=== PATIENT | female | born 1930 | race African-American/Black ===

== ENCOUNTER 2016-07-11 03:18 | Inpatient (IN) | payer MEDICARE, BC ==
[~2016-07-11] VITALS: Ht 177.8 cm; Wt 99.8 kg
[2016-07-11 04:04] LABS: BASO # 0.2 x10^3/uL (0.0-0.2); BASO % 0 % (0-3); EOS % 0 % (0-3); HEMATOCRIT 34.8 % (36.0-47.0); LYMPH # 34.1 x10^3/uL (1.0-4.8); LYMPH % 83 % (24-48); MEAN CORPUSCULAR HEMOGLOBIN 30 pg (25-35); MEAN CORPUSCULAR HGB CONC 32 g/dL (31-37); MEAN CORPUSCULAR VOLUME 94 fL (79-100); MONO % 3 % (0-9); NEUT % 14 % (31-73); PLATELET COUNT 194 x10^3/uL (140-400); RED BLOOD COUNT 3.71 x10^6/uL (3.50-5.40); RED CELL DISTRIBUTION WIDTH 13.5 % (11.5-14.5)
[2016-07-11 04:06] LABS: WHITE BLOOD COUNT 41.1 x10^3/uL (4.0-11.0)
[2016-07-11 04:16] LABS: BILIRUBIN,URINE NEGATIVE (NEG); GLUCOSE,URINE NEGATIVE (NEG); NITRITE,URINE NEGATIVE (NEG); PH,URINE 7.5; PROTEIN,URINE NEGATIVE (NEG-TRACE)
[2016-07-11 04:19] LABS: ALBUMIN 3.7 g/dL (3.4-5.0); ALBUMIN/GLOBULIN RATIO 0.9 (1.0-1.7); CALCIUM 9.8 mg/dL (8.5-10.1); CREATININE 0.8 mg/dL (0.6-1.0); GFR 67.8; TOTAL BILIRUBIN 0.9 mg/dL (0.2-1.0); TOTAL PROTEIN 7.9 g/dL (6.4-8.2)
[2016-07-11 04:21] LABS: POTASSIUM 2.9 mmol/L (3.5-5.1)
[2016-07-11 04:26] LABS: BACTERIA,URINE 0 /HPF (0-FEW); SQUAMOUS EPITHELIAL CELL,UR OCC /LPF; WBC,URINE OCC /HPF (0-4)
[2016-07-11] MEDS ORDERED: CONTRAST GIVEN MC PRN (04:45)
[2016-07-11 04:59] LABS: PLT ESTIMATE ADEQUATE (ADEQUATE); SMUDGE CELLS PRESENT
[2016-07-11] MEDS ORDERED: IOHEXOL 300 MG/ML 75 ML VIAL IV ONE (05:00)
--- NOTE | 2016-07-11 05:44 | RAD ---
PROCEDURE CT abdomen and pelvis with contrast. HISTORY Left lower quadrant and back pain. TECHNIQUE Helical CT imaging of the abdomen and pelvis is performed after 75 cc Omnipaque 300 IV contrast. Oral contrast is not given. PQRS: One or more the following individualized dose reduction techniques were utilized for the study: 1. Automated exposure control. 2. Adjustment of the mA and/or kV according to patient size. 3. Use of iterative reconstruction technique. COMPARISON None. FINDINGS Minimal dependent atelectasis in the bilateral lower lobes. The cardiac size is normal. Gallbladder not seen, probably surgically absent. The liver, spleen, pancreas, and adrenal glands are normal. The abdominal aorta is normal caliber. Kidneys enhance symmetrically. There is mild bilateral pelviectasis. Appearance may be due to moderately distended bladder. No urinary bladder wall thickening. Stomach unremarkable. No dilated small bowel. There is distal colon resection. There is left lower quadrant ostomy. The appendix is normal. There is distention of the ascending colon with stool. There is a right periumbilical hernia that contains a loop of colon. The colon distal to the hernia is not dilated. There is mild retroperitoneal adenopathy. For example there is a 1.9 x 1.4 cm lymph node at the level of the left kidney. There is a mildly enlarged pericecal lymph node, image 39. Mildly enlarged bilateral inguinal lymph nodes and bilateral iliac chain lymph nodes. Uterus surgically absent. No pelvic free fluid. There is old compression fracture at the superior endplate of L2. The IMPRESSION 1. There is a small ventral hernia that contains a short segment of mid transverse colon. The colon proximal to this is dilated and fluid-filled. There may be low-grade obstruction. 2. Bladder is moderately distended. There is bilateral pelviectasis that may be secondary to the distention. 3. There is mild retroperitoneal, iliac chain, and inguinal adenopathy. Considerations include metastatic disease or lymphoproliferative disorder. Electronically signed by: Zurdo Coles MD (Jul 11, 2016 05:42:29)
--- NOTE | 2016-07-11 05:52 | ED.ADGEN ---
Past Medical History Past Medical History: Cancer, Hypertension Additional Past Medical Histor: colon ca, chemo and radiadiaiton. Past Surgical History: Other Additional Past Surgical Histo: hernia, colon ca Drug Use: None Adult General Chief Complaint Chief Complaint: OSTOMY PROBLEM HPI HPI Patient is a 85 year old woman, history of hypertension, colon cancer status post partial bowel resection with ostomy in place, who presents emergency department with complaint that she has been having decreased output from her ostomy, also occasionally pain, and generalized weakness. Patient is not a clear historian. Patient is also complaining of low back pain which she states is in barrios worse with a past several days. Patient lives alone, with assistance from her family. She denies any nausea or vomiting, any urinary complaints, any weakness emesis or tingling. Patient's son-in-law is present in the ED, patient' s daughter spoke with nurse [place] on telephone, and informed her that the patient to become increasingly confused with past several months. Patient is denying any injuries, any similar symptoms previously. Review of Systems Review of Systems Constitutional: Denies fever or chills. [] Eyes: Denies change in visual acuity. [] HENT: Denies nasal congestion or sore throat. [] Respiratory: Denies cough or shortness of breath. [] Cardiovascular: Denies chest pain or edema. [] GI: Left lower quadrant abdominal pain, with decreased ostomy output over the past day. No nausea, vomiting, bloody stools or diarrhea. : Denies dysuria. [] Musculoskeletal: Denies back pain or joint pain. [] Integument: Denies rash. [] Neurologic: Denies headache, focal weakness or sensory changes. [] Endocrine: Denies polyuria or polydipsia. [] Lymphatic: Denies swollen glands. [] Psychiatric: Denies depression or anxiety. [] Current Medications Current Medications Current Medications Medications (Trade) Dose Ordered Sig/Wilmer Start Time Stop Time Status Last Admin Dose Admin Info 1 each 1 each PRN DAILY PRN 07/11/16 04:45 07/13/16 04:44 Iohexol (Omnipaque 300 Mg/ml) 75 ml 1X ONCE 07/11/16 05:00 07/11/16 05:01 DC 07/11/16 05:18 75 ML Potassium Chloride/Sodium Chloride (KCl 40 Meq-NS 1,000 ml Iv Soln) 1,000 ml @ 75 mls/hr 1X ONCE 07/11/16 06:00 07/11/16 19:19 DC 07/11/16 06:18 75 MLS/HR Potassium Chloride (KCl Oral Soln) 40 meq 1X ONCE 07/11/16 06:00 07/11/16 06:01 DC 07/11/16 06:17 40 MEQ Allergies Allergies Allergies Coded Allergies Type Severity Reaction Last Updated Verified Penicillins Allergy Intermediate 07/11/16 Yes Sulfa (Sulfonamide Antibiotics) Allergy Intermediate 07/11/16 Yes Physical Exam Physical Exam Constitutional: Well developed, well nourished, no acute distress, non-toxic appearance. [] HENT: Normocephalic, atraumatic, bilateral external ears normal, oropharynx moist, no oral exudates, nose normal. [] Eyes: PERRLA, EOMI, conjunctiva normal, no discharge. [] Neck: Normal range of motion, no tenderness, supple, no stridor. [] Cardiovascular:Heart rate regular rhythm, no murmur [] Lungs & Thorax: Bilateral breath sounds clear to auscultation [] Abdomen: Bowel sounds normal, soft, no tenderness, no masses, no pulsatile masses. [] Skin: Warm, dry, no erythema, no rash. [] Back: No tenderness, no CVA tenderness. [] Extremities: No tenderness, no cyanosis, no clubbing, ROM intact, no edema. [] Neurologic: Alert and oriented X 3, normal motor function, normal sensory function, no focal deficits noted. [] Psychologic: Affect normal, judgement normal, mood normal. [] Current Patient Data Vital Signs Vital Signs Date Time Temp Pulse Resp B/P Pulse Ox O2 Delivery O2 Flow Rate FiO2 07/11/16 07:00 62 160/71 95 Room Air 07/11/16 03:35 98.0 22 98.0 Lab Values Laboratory Tests Test 07/11/16 03:44 07/11/16 04:10 07/11/16 04:22 White Blood Count 41.1x10^3/uL (4.0-11.0) *H Red Blood Count 3.71x10^6/uL (3.50-5.40) Hemoglobin 11.0g/dL (12.0-15.5) L Hematocrit 34.8% (36.0-47.0) L Mean Corpuscular Volume 94fL (79-100) Mean Corpuscular Hemoglobin 30pg (25-35) Mean Corpuscular Hemoglobin Concent 32g/dL (31-37) Red Cell Distribution Width 13.5% (11.5-14.5) Platelet Count 194x10^3/uL (140-400) Neutrophils (%) (Auto) 14% (31-73) L Lymphocytes (%) (Auto) 83% (24-48) H Monocytes (%) (Auto) 3% (0-9) Eosinophils (%) (Auto) 0% (0-3) Basophils (%) (Auto) 0% (0-3) Neutrophils # (Auto) 5.7x10^3uL (1.8-7.7) Lymphocytes # (Auto) 34.1x10^3/uL (1.0-4.8) H Monocytes # (Auto) 1.1x10^3/uL (0.0-1.1) Eosinophils # (Auto) 0.1x10^3/uL (0.0-0.7) Basophils # (Auto) 0.2x10^3/uL (0.0-0.2) Segmented Neutrophils % 17% (35-66) L Lymphocytes % 79% (24-48) H Monocytes % 4% (0-10) Smudge Cells Present Platelet Estimate Adequate (ADEQUATE) Giant Platelets Occ Sodium Level 148mmol/L (136-145) H Potassium Level 2.9mmol/L (3.5-5.1) *L Chloride Level 105mmol/L (98-107) Carbon Dioxide Level 34mmol/L (21-32) H Anion Gap 9 (6-14) Blood Urea Nitrogen 13mg/dL (7-20) Creatinine 0.8mg/dL (0.6-1.0) Estimated GFR (Cockcroft-Gault) 67.8 BUN/Creatinine Ratio 16 (6-20) Glucose Level 104mg/dL (70-99) H Calcium Level 9.8mg/dL (8.5-10.1) Total Bilirubin 0.9mg/dL (0.2-1.0) Aspartate Amino Transferase (AST) 15U/L (15-37) Alanine Aminotransferase (ALT) 17U/L (14-59) Alkaline Phosphatase 114U/L (46-116) Total Protein 7.9g/dL (6.4-8.2) Albumin 3.7g/dL (3.4-5.0) Albumin/Globulin Ratio 0.9 (1.0-1.7) L Lipase 89U/L (73-393) Urine Collection Type U cath Urine Color Yellow Urine Clarity Clear Urine pH 7.5 Urine Specific [place] <=1.005 Urine Protein Negativemg/dL (NEG-TRACE) Urine Glucose (UA) Negativemg/dL (NEG) Urine Ketones (Stick) Negativemg/dL (NEG) Urine Blood Trace (NEG) Urine Nitrite Negative (NEG) Urine Bilirubin Negative (NEG) Urine Urobilinogen Dipstick 1.0mg/dL (0.2 mg/dL) Urine Leukocyte Esterase Negative (NEG) Urine RBC 1-2/HPF (0-2) Urine WBC Occ/HPF (0-4) Urine Squamous Epithelial Cells Occ/LPF Urine Amorphous Sediment Present/HPF Urine Bacteria 0/HPF (0-FEW) Urine Mucus Slight/LPF Lactic Acid Level 1.0mmol/L (0.4-2.0) Laboratory Tests 07/11/16 03:44 Laboratory Tests 07/11/16 03:44 EKG EKG EC: Sinus rhythm, heart rate 67 bpm, upright axis, QTC of 4:15, NV 158, QRS of 78, mild baseline artifact noted, no ST elevations or depressions, does not meet STEMI criteria. As interpreted by me. Radiology/Procedures Radiology/Procedures [] [facility] [address] [place] [address] IMAGING REPORT Signed PATIENT: BENJAMÍN GROSSMAN ACCOUNT: [id number] : 1930 LOCATION: ER AGE: 85 SEX: F EXAM STATUS: REG ER ORD. PHYSICIAN: ELIZABET MANDUJANO DO REASON: AMS PROCEDURE: HEAD WO CONTRAST PROCEDURE CT head without contrast. HISTORY Increasing altered mental status some of the last couple of weeks. History of colon cancer. TECHNIQUE Helical CT imaging of the brain is performed without IV contrast. PQRS: One or more the following individualized dose reduction techniques were utilized for the study: 1. Automated exposure control. 2. Adjustment of the mA and/or kV according to patient size. 3. Use of iterative reconstruction technique. COMPARISON None. FINDINGS There is no midline shift or mass effect. No extra-axial fluid collection or intraparenchymal hemorrhage. Barrios-white matter differentiation is preserved. Ventricles and sulci are prominent compatible with age-related cerebral atrophy. Mucosal thickening in the bilateral maxillary sinuses. Maxillary sinuses incompletely image. The other visualized paranasal sinuses and mastoid air cells are clear. The globes and orbits appear intact. No acute calvarial abnormality. IMPRESSION No acute intracranial abnormality. Electronically signed by: Zurdo Coles MD (Jul 11, 2016 06:48:12) DICTATED and SIGNED BY: ZURDO COLES MD DATE: 07/11/16647 CC: ELIZABET MANDUJANO DO; NO PCP ~ Impressions: [facility] [address] [place] [address] IMAGING REPORT Signed PATIENT: BENJAMÍN GROSSMAN ACCOUNT: [id number] : 1930 LOCATION: ER AGE: 85 SEX: F EXAM STATUS: REG ER ORD. PHYSICIAN: ELIZABET MANDUJANO DO REASON: LLQ abd pain/back pain PROCEDURE: ABD PELV W/ IV CONTRAST ONLY PROCEDURE CT abdomen and pelvis with contrast. HISTORY Left lower quadrant and back pain. TECHNIQUE Helical CT imaging of the abdomen and pelvis is performed after 75 cc Omnipaque 300 IV contrast. Oral contrast is not given. PQRS: One or more the following individualized dose reduction techniques were utilized for the study: 1. Automated exposure control. 2. Adjustment of the mA and/or kV according to patient size. 3. Use of iterative reconstruction technique. COMPARISON None. FINDINGS Minimal dependent atelectasis in the bilateral lower lobes. The cardiac size is normal. Gallbladder not seen, probably surgically absent. The liver, spleen, pancreas, and adrenal glands are normal. The abdominal aorta is normal caliber. Kidneys enhance symmetrically. There is mild bilateral pelviectasis. Appearance may be due to moderately distended bladder. No urinary bladder wall thickening. Stomach unremarkable. No dilated small bowel. There is distal colon resection. There is left lower quadrant ostomy. The appendix is normal. There is distention of the ascending colon with stool. There is a right periumbilical hernia that contains a loop of colon. The colon distal to the hernia is not dilated. There is mild retroperitoneal adenopathy. For example there is a 1.9 x 1.4 cm lymph node at the level of the left kidney. There is a mildly enlarged pericecal lymph node, image 39. Mildly enlarged bilateral inguinal lymph nodes and bilateral iliac chain lymph nodes. Uterus surgically absent. No pelvic free fluid. There is old compression fracture at the superior endplate of L2. The IMPRESSION 1. There is a small ventral hernia that contains a short segment of mid transverse colon. The colon proximal to this is dilated and fluid-filled. There may be low-grade obstruction. 2. Bladder is moderately distended. There is bilateral pelviectasis that may be secondary to the distention. 3. There is mild retroperitoneal, iliac chain, and inguinal adenopathy. Considerations include metastatic disease or lymphoproliferative disorder. Electronically signed by: Zurdo Coles MD (Jul 11, 2016 05:42:29) DICTATED and SIGNED BY: ZURDO COLES MD DATE: 07/11/16 0542 CC: ELIZABET MANDUJANO DO; NO [facility] [address] [place] [address] IMAGING REPORT Signed PATIENT: BENJAMÍN GROSSMAN ACCOUNT: [id number] : 1930 LOCATION: ER AGE: 85 SEX: F EXAM STATUS: REG ER ORD. PHYSICIAN: ELIZABET MANDUJANO DO REASON: LLQ abd pain/back pain PROCEDURE: ABD PELV W/ IV CONTRAST ONLY PROCEDURE CT abdomen and pelvis with contrast. HISTORY Left lower quadrant and back pain. TECHNIQUE Helical CT imaging of the abdomen and pelvis is performed after 75 cc Omnipaque 300 IV contrast. Oral contrast is not given. PQRS: One or more the following individualized dose reduction techniques were utilized for the study: 1. Automated exposure control. 2. Adjustment of the mA and/or kV according to patient size. 3. Use of iterative reconstruction technique. COMPARISON None. FINDINGS Minimal dependent atelectasis in the bilateral lower lobes. The cardiac size is normal. Gallbladder not seen, probably surgically absent. The liver, spleen, pancreas, and adrenal glands are normal. The abdominal aorta is normal caliber. Kidneys enhance symmetrically. There is mild bilateral pelviectasis. Appearance may be due to moderately distended bladder. No urinary bladder wall thickening. Stomach unremarkable. No dilated small bowel. There is distal colon resection. There is left lower quadrant ostomy. The appendix is normal. There is distention of the ascending colon with stool. There is a right periumbilical hernia that contains a loop of colon. The colon distal to the hernia is not dilated. There is mild retroperitoneal adenopathy. For example there is a 1.9 x 1.4 cm lymph node at the level of the left kidney. There is a mildly enlarged pericecal lymph node, image 39. Mildly enlarged bilateral inguinal lymph nodes and bilateral iliac chain lymph nodes. Uterus surgically absent. No pelvic free fluid. There is old compression fracture at the superior endplate of L2. The IMPRESSION 1. There is a small ventral hernia that contains a short segment of mid transverse colon. The colon proximal to this is dilated and fluid-filled. There may be low-grade obstruction. 2. Bladder is moderately distended. There is bilateral pelviectasis that may be secondary to the distention. 3. There is mild retroperitoneal, iliac chain, and inguinal adenopathy. Considerations include metastatic disease or lymphoproliferative disorder. Electronically signed by: Zurdo Coles MD (Jul 11, 2016 05:42:29) DICTATED and SIGNED BY: ZURDO COLES MD DATE: 07/11/16 0542 CC: ELIZABET MANDUJANO DO; NO PCP ~ Course & Med Decision Making Course & Med Decision Making Pertinent Labs and Imaging studies reviewed. (See chart for details) Patient is a poor historian, per report of family she's had increasing confusion over the past several weeks to months. Vague complaints in the ED today, of generalized weakness, abdominal pain, and decreased ostomy output. No vomiting, denies any neurologic complaints. Straight catheter performed in the ED, without evidence of infection in the urine, patient did have a white count of 41.1. Patient stated that she has "my cancer Dr.", Dr. Suresh, for colon cancer , unclear if she has any history of any malignancy. Patient with no vomiting in the ED, noted to have a potassium of 2.9, with the patient's age, complaining of weakness, and abdominal pain, she was given oral repletion along with IV repletion in the ED, ECG was unremarkable. I did page the on-call service, and spoke to Dr. 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 As discussed with Dr. Huitron, no evidence of infection noted on chest x-ray, or CT of abdomen pelvis, which does reveal adenopathy, no obvious infection, possible low-grade obstruction is noted , as stated patient is having no nausea or vomiting in the ED at this time, no indication for placing an NG tube at this point. Possible Elie's? General surgery consult. Dr. Huitron is agreeable plan to follow laboratory studies, and to wait to institute any antibiotic coverage until a clear source would be identified. Patient initially declined admission to the hospital, and I do have concerns that she is not able to fully understand the medical decision making process at this point, however after discussion with myself, nurse Taryn at bedside, and discussion with Taryn in the patient's daughter, Kae Fisher, patient is agreeable for admission to the hospital for receiving IV repletion, and evaluation with hematology oncology along with repeat laboratory studies. Waiting callback from Dr. Tafoya at time of shift change, information was relayed to Dr. Rao, after several pager attempts, he will really information to Dr. Tafoya. Bridge orders are entered at this time. Dragon Disclaimer Dragon Disclaimer This electronic medical record was generated, in whole or in part, using a voice recognition dictation system. Departure Impression: Primary Impression: Abdominal pain Additional Impression: Hypokalemia Disposition: ADMITTED INPATIENT Admitting Physician: Hillary Tafoya Condition: IMPROVED Problem Qualifiers Primary Impression: Abdominal pain Abdominal location: lower abdomen, unspecified Qualified Code: R10.30 - Lower abdominal pain, unspecified ELIZABET MANDUJANO DO Jul 11, 2016 05:52
[2016-07-11] MEDS ORDERED: POTASSIUM CL 40MEQ IN 0.9%NACL 1,000 ML IV ONE (06:00)
[2016-07-11] MEDS ORDERED: POTASSIUM CHLORIDE 20 MEQ/15 ML ORAL LIQUID. PO ONE (06:00)
--- NOTE | 2016-07-11 06:50 | RAD ---
PROCEDURE CT head without contrast. HISTORY Increasing altered mental status some of the last couple of weeks. History of colon cancer. TECHNIQUE Helical CT imaging of the brain is performed without IV contrast. PQRS: One or more the following individualized dose reduction techniques were utilized for the study: 1. Automated exposure control. 2. Adjustment of the mA and/or kV according to patient size. 3. Use of iterative reconstruction technique. COMPARISON None. FINDINGS There is no midline shift or mass effect. No extra-axial fluid collection or intraparenchymal hemorrhage. Barrios-white matter differentiation is preserved. Ventricles and sulci are prominent compatible with age-related cerebral atrophy. Mucosal thickening in the bilateral maxillary sinuses. Maxillary sinuses incompletely image. The other visualized paranasal sinuses and mastoid air cells are clear. The globes and orbits appear intact. No acute calvarial abnormality. IMPRESSION No acute intracranial abnormality. Electronically signed by: Zurdo Coles MD (Jul 11, 2016 06:48:12)
--- NOTE | 2016-07-11 07:07 | RAD ---
Portable chest, 07/11/2016: History: Back pain The heart is at the upper limits of normal in size. There is tortuosity of the thoracic aorta. The pulmonary vascularity is normal. No pulmonary infiltrates are seen. There is no evidence of pleural fluid. Moderate spurring is present in the spine. IMPRESSION: 1. Aortic ectasia. 2. No acute cardiopulmonary abnormality is detected.
[2016-07-11] MEDS ORDERED: FENTANYL PF 100 MCG/2 ML VIAL. IV PRN (07:15)
[2016-07-11] MEDS ORDERED: ONDANSETRON PF 4 MG/2 ML VIAL. IV PRN ×2 (07:15→16:15)
[2016-07-11] MEDS ORDERED: ACETAMINOPHEN 325 MG TABLET. PO PRN ×2 (07:15→16:15)
--- NOTE | 2016-07-11 07:58 | EKG ---
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
--- NOTE | 2016-07-11 10:24 | PDOC2 ---
MAURO JOYA [employer] 07/11/16 1024: CONSULT Date of Consult Date of Consult DATE: 07/11/16 TIME: 10:15 Reason for Consult Reason for Consult: possible bowel obstruction Referring Physician Referring Physician: ER Identification/Chief Complaint Chief Complaint constipation Source Source: Caregiver (daugther on phone), Patient History of Present Illness Reason for Visit: I spoke with patient and her daughter on the phone. She has chronic problems with constipation. Generally requires laxatives. She does follow with a Gi doctor at . She has had constipation for several days and minimal output from ostomy. Denies nausea or emesis. However has had abdominal pain, although currently better. She is a poor historian, but is oriented enough to answer my questions History of colon cancer, resection, ostomy 40 years ago Past Medical History Cardiovascular: HTN Heme/Onc: Cancer (colon) Past Surgical History Past Surgical History: Colon Resection (ostomy) Family History Family History: Other (noncontributory due to advanced age) Social History No ALCOHOL: none Drugs: None Lives: Alone (family lives close and assists patient ) Current Problem List Problem List Problems Medical Problems: (1) Abdominal pain Status: Acute (2) Hyperkalemia Status: Acute (3) Hypokalemia Status: Acute (4) SBO (small bowel obstruction) Status: Acute Current Medications Current Medications Current Medications Iohexol (Omnipaque 300 Mg/ml) 75 ml 1X ONCE IV Last administered on 07/11/16 05:18; Start 07/11/16 at 05:00; Stop 07/11/16 at 05:01; Status DC Info 1 each 1 each PRN DAILY PRN MC SEE COMMENTS; Start 07/11/16 at 04:45; Stop 07/13/16 at 04:44 Potassium Chloride/Sodium Chloride (KCl 40 Meq-NS 1,000 ml Iv Soln) 1,000 ml @ 75 mls/hr 1X ONCE IV Last administered on 07/11/16 06:18; Start 07/11/16 at 06:00; Stop 07/11/16 at 19:19 Potassium Chloride (KCl Oral Soln) 40 meq 1X ONCE PO Last administered on 07/11 06:17; Start 07/11/16 at 06:00; Stop 07/11/16 at 06:01; Status DC Ondansetron HCl (Zofran) 4 mg PRN Q8HRS PRN IV NAUSEA/VOMITING; Start 07/11/16 at 07:15; Stop 07/12/16 at 07:14 Fentanyl Citrate (Fentanyl 2ml Vial) 50 mcg PRN Q2HR PRN IV PAIN; Start at 07:15; Stop 07/12/16 at 07:14 Acetaminophen (Tylenol) 650 mg PRN Q4HRS PRN PO FEVER; Start 07/11/16 at 07:15 ; Stop 07/12/16 at 07:14 Allergies Allergies: Coded Allergies: Penicillins (Verified Allergy, Intermediate, 07/11/16) Sulfa (Sulfonamide Antibiotics) (Verified Allergy, Intermediate, 07/11/16) ROS General: No: Chills, Other (fevers) PSYCHOLOGICAL ROS: No: Anxiety, Depression Eyes: No Blurry vision HEENT: No: Heacaches, Sore Throat Hematological and Lymphatic: No: Bleeding Problems, Blood Clots Respiratory: No: Cough, Shortness of breath Cardiovascular: No Chest Pain, No Palpitations Gastrointestinal: Yes Other (see hpi) Genitourinary: No Dysuria, No Hematuria Musculoskeletal: Yes Pain In: (back) Neurological: Yes Confusion, Yes Tremors, Yes Weakness Skin: No Pruritus, No Rash Physical Exam General: Alert, Oriented X3, Cooperative, No acute distress, Other (she fidgets in chair during exam) HEENT: Atraumatic, PERRLA Lungs: Clear to auscultation, Normal air movement Heart: Regular rate, Normal S1, Normal S2, No murmurs Abdomen: Soft, Other (ND, NTTP, ostomy has stool present ) Skin: No rashes, No breakdown Neuro: Normal speech, Sensation intact MUSCULOSKELETAL: No deformity, No swelling Vitals VITALS Vital Signs Date Time Temp Pulse Resp B/P Pulse Ox O2 Delivery O2 Flow Rate FiO2 07/11/16 08:00 64 143/69 Room Air 07/11/16 07:00 95 07/11/16 03:35 98.0 22 98.0 Labs Labs Laboratory Tests Test 07/11/16 03:44 07/11/16 04:10 07/11/16 04:22 White Blood Count 41.1x10^3/uL (4.0-11.0) Red Blood Count 3.71x10^6/uL (3.50-5.40) Hemoglobin 11.0g/dL (12.0-15.5) Hematocrit 34.8% (36.0-47.0) Mean Corpuscular Volume 94fL (79-100) Mean Corpuscular Hemoglobin 30pg (25-35) Mean Corpuscular Hemoglobin Concent 32g/dL (31-37) Red Cell Distribution Width 13.5% (11.5-14.5) Platelet Count 194x10^3/uL (140-400) Neutrophils (%) (Auto) 14% (31-73) Lymphocytes (%) (Auto) 83% (24-48) Monocytes (%) (Auto) 3% (0-9) Eosinophils (%) (Auto) 0% (0-3) Basophils (%) (Auto) 0% (0-3) Neutrophils # (Auto) 5.7x10^3uL (1.8-7.7) Lymphocytes # (Auto) 34.1x10^3/uL (1.0-4.8) Monocytes # (Auto) 1.1x10^3/uL (0.0-1.1) Eosinophils # (Auto) 0.1x10^3/uL (0.0-0.7) Basophils # (Auto) 0.2x10^3/uL (0.0-0.2) Segmented Neutrophils % 17% (35-66) Lymphocytes % 79% (24-48) Monocytes % 4% (0-10) Smudge Cells Present Platelet Estimate Adequate (ADEQUATE) Giant Platelets Occ Sodium Level 148mmol/L (136-145) Potassium Level 2.9mmol/L (3.5-5.1) Chloride Level 105mmol/L (98-107) Carbon Dioxide Level 34mmol/L (21-32) Anion Gap 9 (6-14) Blood Urea Nitrogen 13mg/dL (7-20) Creatinine 0.8mg/dL (0.6-1.0) Estimated GFR (Cockcroft-Gault) 67.8 BUN/Creatinine Ratio 16 (6-20) Glucose Level 104mg/dL (70-99) Calcium Level 9.8mg/dL (8.5-10.1) Total Bilirubin 0.9mg/dL (0.2-1.0) Aspartate Amino Transf (AST/SGOT) 15U/L (15-37) Alanine Aminotransferase (ALT/SGPT) 17U/L (14-59) Alkaline Phosphatase 114U/L (46-116) Total Protein 7.9g/dL (6.4-8.2) Albumin 3.7g/dL (3.4-5.0) Albumin/Globulin Ratio 0.9 (1.0-1.7) Lipase 89U/L (73-393) Urine Collection Type U cath Urine Color Yellow Urine Clarity Clear Urine pH 7.5 Urine Specific [place] <=1.005 Urine Protein Negativemg/dL (NEG-TRACE) Urine Glucose (UA) Negativemg/dL (NEG) Urine Ketones (Stick) Negativemg/dL (NEG) Urine Blood Trace (NEG) Urine Nitrite Negative (NEG) Urine Bilirubin Negative (NEG) Urine Urobilinogen Dipstick 1.0mg/dL (0.2 mg/dL) Urine Leukocyte Esterase Negative (NEG) Urine RBC 1-2/HPF (0-2) Urine WBC Occ/HPF (0-4) Urine Squamous Epithelial Cells Occ/LPF Urine Amorphous Sediment Present/HPF Urine Bacteria 0/HPF (0-FEW) Urine Mucus Slight/LPF Lactic Acid Level 1.0mmol/L (0.4-2.0) Laboratory Tests Test 07/11/16 03:44 07/11/16 04:10 07/11/16 04:22 White Blood Count 41.1x10^3/uL (4.0-11.0) Red Blood Count 3.71x10^6/uL (3.50-5.40) Hemoglobin 11.0g/dL (12.0-15.5) Hematocrit 34.8% (36.0-47.0) Mean Corpuscular Volume 94fL (79-100) Mean Corpuscular Hemoglobin 30pg (25-35) Mean Corpuscular Hemoglobin Concent 32g/dL (31-37) Red Cell Distribution Width 13.5% (11.5-14.5) Platelet Count 194x10^3/uL (140-400) Neutrophils (%) (Auto) 14% (31-73) Lymphocytes (%) (Auto) 83% (24-48) Monocytes (%) (Auto) 3% (0-9) Eosinophils (%) (Auto) 0% (0-3) Basophils (%) (Auto) 0% (0-3) Neutrophils # (Auto) 5.7x10^3uL (1.8-7.7) Lymphocytes # (Auto) 34.1x10^3/uL (1.0-4.8) Monocytes # (Auto) 1.1x10^3/uL (0.0-1.1) Eosinophils # (Auto) 0.1x10^3/uL (0.0-0.7) Basophils # (Auto) 0.2x10^3/uL (0.0-0.2) Segmented Neutrophils % 17% (35-66) Lymphocytes % 79% (24-48) Monocytes % 4% (0-10) Smudge Cells Present Platelet Estimate Adequate (ADEQUATE) Giant Platelets Occ Sodium Level 148mmol/L (136-145) Potassium Level 2.9mmol/L (3.5-5.1) Chloride Level 105mmol/L (98-107) Carbon Dioxide Level 34mmol/L (21-32) Anion Gap 9 (6-14) Blood Urea Nitrogen 13mg/dL (7-20) Creatinine 0.8mg/dL (0.6-1.0) Estimated GFR (Cockcroft-Gault) 67.8 BUN/Creatinine Ratio 16 (6-20) Glucose Level 104mg/dL (70-99) Calcium Level 9.8mg/dL (8.5-10.1) Total Bilirubin 0.9mg/dL (0.2-1.0) Aspartate Amino Transf (AST/SGOT) 15U/L (15-37) Alanine Aminotransferase (ALT/SGPT) 17U/L (14-59) Alkaline Phosphatase 114U/L (46-116) Total Protein 7.9g/dL (6.4-8.2) Albumin 3.7g/dL (3.4-5.0) Albumin/Globulin Ratio 0.9 (1.0-1.7) Lipase 89U/L (73-393) Urine Collection Type U cath Urine Color Yellow Urine Clarity Clear Urine pH 7.5 Urine Specific [place] <=1.005 Urine Protein Negativemg/dL (NEG-TRACE) Urine Glucose (UA) Negativemg/dL (NEG) Urine Ketones (Stick) Negativemg/dL (NEG) Urine Blood Trace (NEG) Urine Nitrite Negative (NEG) Urine Bilirubin Negative (NEG) Urine Urobilinogen Dipstick 1.0mg/dL (0.2 mg/dL) Urine Leukocyte Esterase Negative (NEG) Urine RBC 1-2/HPF (0-2) Urine WBC Occ/HPF (0-4) Urine Squamous Epithelial Cells Occ/LPF Urine Amorphous Sediment Present/HPF Urine Bacteria 0/HPF (0-FEW) Urine Mucus Slight/LPF Lactic Acid Level 1.0mmol/L (0.4-2.0) Assessment/Plan Assessment/Plan constipation, abdominal pain HTN, hx colon cancer, obesity confusion hypokalemia--2.9, received replacement CT shows ventral hernia containing transverse colon, concern for possible obstruction- wbc is 41, nontender on exam, stool in ostomy will have JASMIN Roman MD 07/11/16 1106: CONSULT Allergies Allergies: Coded Allergies: Penicillins (Verified Allergy, Intermediate, 07/11/16) Sulfa (Sulfonamide Antibiotics) (Verified Allergy, Intermediate, 07/11/16) Assessment/Plan Assessment/Plan addendum i saw and examined her. poor historian--difficult to get a true 4+ HPI due to this. Has hx of colectomy and ostomy presented with abd pain and constipation. constipation is chronic with recent exacerbation/worsening. constipation typically improved with laxatives. c/o abd pain on arrival, but now denies pain and has stool in her ostomy bag. i repeated altman parts of her consult as best as I could. at this time she denies abd pain., she had been sitting on the bedpan in a chair when i arrive and she is able to get up independently and lie down in the bed. she c/o pain on her bottom/upper thigh. abd soft nd nt i can palpate her hernia/fascial defect--is nontender, not incarcerated +moderate amount of stool in ostomy bag anal/perineal exam: no tenderness, induration, fluctuance or abnormality to suggest infection er notes reviewed--per the note dr. olivares reports wbc is usually 20 a/p abd pain resolved. stool in bag. incisional hernia, reducible, no indication it is clinically significant at this time leukocytosis with hx of cll. w/u per primary. MAURO JOYA [employer] Jul 11, 2016 10:24 JASMIN CHRISTIANSEN MD Jul 11, 2016 11:06
[2016-07-11 12:15] LABS: CALCIUM 9.9 mg/dL (8.5-10.1); CREATININE 0.8 mg/dL (0.6-1.0); GFR 82.1; POTASSIUM 3.3 mmol/L (3.5-5.1)
--- NOTE | 2016-07-11 14:22 | ACF ---
Admission Forms Criteria HYPONATREMIA; HYPERNATREMIA; HYPOKALEMIA; HYPERKALEMIA; HYPOCALCEMIA; HYPERCALCEMIA Clinical Indications for Inpatient Care (Place 'X' for any and all applicable criteria): Ongoing inpatient care may be indicated for ANY ONE of the following [G](1)(2)(3 )(5): [ ]I. Hyponatremia with ANY ONE of the following: [ ]a) Sodium less than 130 mEq/L (mmol/L) (new) (6)(22) [ ]b) Sodium less than 135 mEq/L (mmol/L) with ANY ONE of the following: [ ]i) Severe medical etiology requiring inpatient management (eg, heart failure, hypovolemia) [ ]ii) Altered mental status [ ]iii) Seizures [ ]II. Hypernatremia with ANY ONE of the following: [ ]a) Sodium greater than 155 mEq/L (mmol/L) [ ]b) Sodium greater than 150 mEq/L (mmol/L) with ANY ONE of the following: [ ] i) Altered mental status [ ]ii) Seizures [ ]iii) Severe medical etiology (eg, hypovolemia, diabetes insipidus) [ ]iv) Severe weakness [ ]v) Severe medical etiology (eg, hemolysis, infection, drug overdose) [X]III. Hypokalemia with ANY ONE of the following: [ ]a) Potassium less than 2.5 mEq/L (mmol/L) despite outpatient and emergency treatment [X]b) Potassium less than 3.0 mEq/L (mmol/L) with ANY ONE of the following: [X]i) Weakness [ ]ii) Cardiac abnormality (eg, arrhythmia, conduction disturbance) [ ]iii) Cardiac ischemia [ ]iv) Ileus [ ]v) Ongoing medical cause requiring inpatient management. ( e.g., acute renal wasting, SIADH) [ ]vi) Other severe symptoms [ ] IV. Hyperkalemia with ANY ONE of the following: [ ]a) Potassium greater than 6.5 mEq/L (mmol/L) [ ]b) Potassium greater than 5 mEq/L (mmol/L) with ANY ONE of the following: [ ]i) Severe ECG findings [H] [ ]ii) Acute worsening of renal failure (creatinine greater than 2.5 mg/dL (221 micromoles/L) or significant elevation for age and size) [ ] V. Hypocalcemia with ANY ONE of the following: [ ]a) Calcium less than 7 mg/dL (1.75 mmol/L) despite outpatient and emergency treatment(19) [ ]b) Calcium less than 8 mg/dL (2 mmol/L) with significant symptoms or findings; examples include: [ ]i) Cardiac abnormality (eg, arrhythmia or conduction disturbance) [ ]ii) Altered mental status [ ]iii) Seizures [ ]iv) Breathing difficulty [ ]v) Muscle spasms [ ]. Hypercalcemia with ANY ONE of the following: [ ]a) Calcium greater than 14 mg/dL (3.5 mmol/L) [ ]b) Calcium greater than 12 mg/dL (3 mmol/L) with ANY ONE of the following: [ ]i) Significant dehydration or hypovolemia as indicated by ANY ONE of the following(2): [ ]1. Clinically significant dehydration as indicated by ANY ONE of the following: [ ]A. Acute loss of weight from baseline (5% of body weight in adults, 9% in pediatric patients) [ ]B. Hemodynamic instability [ ]C. Acute renal failure [ ]D. Serum sodium greater than 150 mEq/L (mmol/L) [ ]2) Dehydration that is persistent indicated by ALL of the following: [ ]A. Oral rehydration therapy not tolerated or insufficient to adequately correct dehydration [ ]B. Appropriate intravenous treatment (eg, fluids ) does not readily correct dehydration ie, after 12 to 24 hours of treatment) [ ]ii) Significant symptoms or findings; examples include: [ ]1) Altered mental status [ ]2) Cardiac abnormality (eg, arrhythmia, conduction disturbance) [ ]3) Cardiac abnormality (eg, arrhythmia, conduction disturbance) The original [facility] content created by [employer] has been revised. The portions of the content which have been revised are identified through the use of italic text or in bold, and [email or web address] has neither reviewed nor approved the modified material. All other unmodified content is copyright [email or web address] Please see references footnoted in the original [facility] [employer] edition 2016 Admission Criteria Met?: Yes BRANDI MALONEY Jul 11, 2016 14:22
[2016-07-11 15:15] VITALS: BP 179/96
--- NOTE | 2016-07-11 16:03 | PDOC ---
Provider Note Provider Note HEM/ONC consult See dictation # [id number] 1. Stage 1, CLL diagnosed 08/28/15: Leukocytosis with elevated lymphocytes and smudge cells consistent with CLL., confirmed by flow cytometry. No indications for chemotherapy. I reviewed diagnosis and prognosis and indications for chemotherapy. 2. Colon cancer 1975. she had surgery for colon cancer and had colostomy placement. CEA level is normal. PATO ROMAN MD Jul 11, 2016 16:03
--- NOTE | 2016-07-11 16:17 | PDOC1 ---
History and Physical Date of Admission Date of Admission 07/11/16 Identification/Chief Complaint Chief Complaint abd pain Problems: Source Source: Chart review, Patient History of Present Illness History of Present Illness HPI HPI Patient is a 85 year old woman, history of hypertension, comes for abd pain. Pt had colon Ca in 1975 post resection and colostomy. She c/o some abd pain , saying the colostomy is not working well, but cannot tell me how. she also c/o bl knee pain, and back pain. denies N/V, fever, chills, cough, sob. as per ERP, Patient's son-in-law is present in the ED, patient's daughter spoke with nurse [place] on telephone, and informed her that the patient to become increasingly confused with past several months. Patient is denying any injuries, any similar symptoms previously. PT LIVEs with her daughter. Past Medical History Cardiovascular: HTN Heme/Onc: Cancer (colon) Past Surgical History Past Surgical History: Colon Resection (ostomy) Family History Family History: Other (noncontributory due to advanced age) Social History Smoke: No ALCOHOL: none Drugs: None Current Problem List Problem List Problems Medical Problems: (1) Abdominal pain Status: Acute (2) Hyperkalemia Status: Acute (3) Hypokalemia Status: Acute (4) SBO (small bowel obstruction) Status: Acute Current Medications Current Medications Current Medications Medications (Trade) Dose Ordered Sig/Wilmer Start Time Stop Time Status Last Admin Dose Admin Acetaminophen (Tylenol) 650 mg PRN Q4HRS PRN 07/11/16 07:15 07/12/16 07:14 Fentanyl Citrate (Fentanyl 2ml Vial) 50 mcg PRN Q2HR PRN 07/11/16 07:15 07/12/16 07:14 Info 1 each 1 each PRN DAILY PRN 07/11/16 04:45 07/13/16 04:44 Iohexol (Omnipaque 300 Mg/ml) 75 ml 1X ONCE 07/11/16 05:00 07/11/16 05:01 DC 07/11/16 05:18 75 ML Ondansetron HCl (Zofran) 4 mg PRN Q8HRS PRN 07/11/16 07:15 07/12/16 07:14 Potassium Chloride/Sodium Chloride (KCl 40 Meq-NS 1,000 ml Iv Soln) 1,000 ml @ 75 mls/hr 1X ONCE 07/11/16 06:00 07/11/16 19:19 07/11/16 06:18 75 MLS/HR Potassium Chloride (KCl Oral Soln) 40 meq 1X ONCE 07/11/16 06:00 07/11/16 06:01 DC 07/11/16 06:17 40 MEQ Allergies Allergies Allergies Coded Allergies Type Severity Reaction Last Updated Verified Penicillins Allergy Intermediate 07/11/16 Yes Sulfa (Sulfonamide Antibiotics) Allergy Intermediate 07/11/16 Yes ROS Review of System CONSTITUTIONAL: No fever or chills EYES: No recent changes SKIN: No rash or itching CARDIOVASCULAR: No chest pain, syncope, palpitations, or edema RESPIRATORY: No SOB or cough GASTROINTESTINAL: No nausea, vomiting or abdominal pain NEUROLOGICAL: No headaches or weakness ENDOCRINE: No cold or heat intolerance GENITOURINARY: No urgency or frequency of urination MUSCULOSKELETAL: No back pain or joint pain LYMPHATICS: No enlarged lymph nodes PSYCHIATRIC: No anxiety or depression Physical Exam Physical Exam GEN.: No apparent distress. Alert and oriented. HEENT: Head is normocephalic, atraumatic NECK: Supple. LUNGS: Clear to auscultation. HEART: RRR, S1, S2 present. Peripheral pulses intact ABDOMEN: Soft, nontender. Positive bowel sounds. + colostomy with loose stool EXTREMITIES: Without any cyanosis. NEUROLOGIC: Normal speech, normal tone PSYCHIATRIC: Normal affect, normal mood. SKIN: No ulcerations Vitals Vitals Vital Signs Date Time Temp Pulse Resp B/P Pulse Ox O2 Delivery O2 Flow Rate FiO2 07/11/16 15:15 97.7 84 18 179/96 96 Room Air 97.7 Labs Labs Laboratory Tests Test 07/11/16 03:44 07/11/16 04:10 07/11/16 04:22 07/11/16 12:00 White Blood Count 41.1x10^3/uL (4.0-11.0) Red Blood Count 3.71x10^6/uL (3.50-5.40) Hemoglobin 11.0g/dL (12.0-15.5) Hematocrit 34.8% (36.0-47.0) Mean Corpuscular Volume 94fL (79-100) Mean Corpuscular Hemoglobin 30pg (25-35) Mean Corpuscular Hemoglobin Concent 32g/dL (31-37) Red Cell Distribution Width 13.5% (11.5-14.5) Platelet Count 194x10^3/uL (140-400) Neutrophils (%) (Auto) 14% (31-73) Lymphocytes (%) (Auto) 83% (24-48) Monocytes (%) (Auto) 3% (0-9) Eosinophils (%) (Auto) 0% (0-3) Basophils (%) (Auto) 0% (0-3) Neutrophils # (Auto) 5.7x10^3uL (1.8-7.7) Lymphocytes # (Auto) 34.1x10^3/uL (1.0-4.8) Monocytes # (Auto) 1.1x10^3/uL (0.0-1.1) Eosinophils # (Auto) 0.1x10^3/uL (0.0-0.7) Basophils # (Auto) 0.2x10^3/uL (0.0-0.2) Segmented Neutrophils % 17% (35-66) Lymphocytes % 79% (24-48) Monocytes % 4% (0-10) Smudge Cells Present Platelet Estimate Adequate (ADEQUATE) Giant Platelets Occ Sodium Level 148mmol/L (136-145) 148mmol/L (136-145) Potassium Level 2.9mmol/L (3.5-5.1) 3.3mmol/L (3.5-5.1) Chloride Level 105mmol/L (98-107) 107mmol/L (98-107) Carbon Dioxide Level 34mmol/L (21-32) 31mmol/L (21-32) Anion Gap 9 (6-14) 10 (6-14) Blood Urea Nitrogen 13mg/dL (7-20) 9mg/dL (7-20) Creatinine 0.8mg/dL (0.6-1.0) 0.8mg/dL (0.6-1.0) Estimated GFR (Cockcroft-Gault) 67.8 82.1 BUN/Creatinine Ratio 16 (6-20) Glucose Level 104mg/dL (70-99) 102mg/dL (70-99) Calcium Level 9.8mg/dL (8.5-10.1) 9.9mg/dL (8.5-10.1) Total Bilirubin 0.9mg/dL (0.2-1.0) Aspartate Amino Transf (AST/SGOT) 15U/L (15-37) Alanine Aminotransferase (ALT/SGPT) 17U/L (14-59) Alkaline Phosphatase 114U/L (46-116) Total Protein 7.9g/dL (6.4-8.2) Albumin 3.7g/dL (3.4-5.0) Albumin/Globulin Ratio 0.9 (1.0-1.7) Lipase 89U/L (73-393) Urine Collection Type U cath Urine Color Yellow Urine Clarity Clear Urine pH 7.5 Urine Specific [place] <=1.005 Urine Protein Negativemg/dL (NEG-TRACE) Urine Glucose (UA) Negativemg/dL (NEG) Urine Ketones (Stick) Negativemg/dL (NEG) Urine Blood Trace (NEG) Urine Nitrite Negative (NEG) Urine Bilirubin Negative (NEG) Urine Urobilinogen Dipstick 1.0mg/dL (0.2 mg/dL) Urine Leukocyte Esterase Negative (NEG) Urine RBC 1-2/HPF (0-2) Urine WBC Occ/HPF (0-4) Urine Squamous Epithelial Cells Occ/LPF Urine Amorphous Sediment Present/HPF Urine Bacteria 0/HPF (0-FEW) Urine Mucus Slight/LPF Lactic Acid Level 1.0mmol/L (0.4-2.0) Laboratory Tests Test 07/11/16 03:44 07/11/16 04:10 07/11/16 04:22 07/11/16 12:00 White Blood Count 41.1x10^3/uL (4.0-11.0) Red Blood Count 3.71x10^6/uL (3.50-5.40) Hemoglobin 11.0g/dL (12.0-15.5) Hematocrit 34.8% (36.0-47.0) Mean Corpuscular Volume 94fL (79-100) Mean Corpuscular Hemoglobin 30pg (25-35) Mean Corpuscular Hemoglobin Concent 32g/dL (31-37) Red Cell Distribution Width 13.5% (11.5-14.5) Platelet Count 194x10^3/uL (140-400) Neutrophils (%) (Auto) 14% (31-73) Lymphocytes (%) (Auto) 83% (24-48) Monocytes (%) (Auto) 3% (0-9) Eosinophils (%) (Auto) 0% (0-3) Basophils (%) (Auto) 0% (0-3) Neutrophils # (Auto) 5.7x10^3uL (1.8-7.7) Lymphocytes # (Auto) 34.1x10^3/uL (1.0-4.8) Monocytes # (Auto) 1.1x10^3/uL (0.0-1.1) Eosinophils # (Auto) 0.1x10^3/uL (0.0-0.7) Basophils # (Auto) 0.2x10^3/uL (0.0-0.2) Segmented Neutrophils % 17% (35-66) Lymphocytes % 79% (24-48) Monocytes % 4% (0-10) Smudge Cells Present Platelet Estimate Adequate (ADEQUATE) Giant Platelets Occ Sodium Level 148mmol/L (136-145) 148mmol/L (136-145) Potassium Level 2.9mmol/L (3.5-5.1) 3.3mmol/L (3.5-5.1) Chloride Level 105mmol/L (98-107) 107mmol/L (98-107) Carbon Dioxide Level 34mmol/L (21-32) 31mmol/L (21-32) Anion Gap 9 (6-14) 10 (6-14) Blood Urea Nitrogen 13mg/dL (7-20) 9mg/dL (7-20) Creatinine 0.8mg/dL (0.6-1.0) 0.8mg/dL (0.6-1.0) Estimated GFR (Cockcroft-Gault) 67.8 82.1 BUN/Creatinine Ratio 16 (6-20) Glucose Level 104mg/dL (70-99) 102mg/dL (70-99) Calcium Level 9.8mg/dL (8.5-10.1) 9.9mg/dL (8.5-10.1) Total Bilirubin 0.9mg/dL (0.2-1.0) Aspartate Amino Transf (AST/SGOT) 15U/L (15-37) Alanine Aminotransferase (ALT/SGPT) 17U/L (14-59) Alkaline Phosphatase 114U/L (46-116) Total Protein 7.9g/dL (6.4-8.2) Albumin 3.7g/dL (3.4-5.0) Albumin/Globulin Ratio 0.9 (1.0-1.7) Lipase 89U/L (73-393) Urine Collection Type U cath Urine Color Yellow Urine Clarity Clear Urine pH 7.5 Urine Specific [place] <=1.005 Urine Protein Negativemg/dL (NEG-TRACE) Urine Glucose (UA) Negativemg/dL (NEG) Urine Ketones (Stick) Negativemg/dL (NEG) Urine Blood Trace (NEG) Urine Nitrite Negative (NEG) Urine Bilirubin Negative (NEG) Urine Urobilinogen Dipstick 1.0mg/dL (0.2 mg/dL) Urine Leukocyte Esterase Negative (NEG) Urine RBC 1-2/HPF (0-2) Urine WBC Occ/HPF (0-4) Urine Squamous Epithelial Cells Occ/LPF Urine Amorphous Sediment Present/HPF Urine Bacteria 0/HPF (0-FEW) Urine Mucus Slight/LPF Lactic Acid Level 1.0mmol/L (0.4-2.0) VTE Prophylaxis Ordered VTE Prophylaxis Devices: Yes VTE Pharmacological Prophylaxi: Yes Assessment/Plan Assessment/Plan 1 abd pain with possible colon obstruction on CT 2. h/o Colon Ca post sx and colostomy 3. mild confusion 4. htn 5. CLL 6. small ventral hernia plan: 1. npo, ivf 2. fu with sx, no intervention for now 3. fu with dr. Suresh 4. need home meds labs tmr dvt ppx CHINO GUZMAN MD Jul 11, 2016 16:17
[2016-07-11] MEDS ORDERED: MORPHINE SULFATE 2 MG/ML DISP.SYRIN. IV PRN (16:30)
[2016-07-11] MEDS ORDERED: MORPHINE SULFATE 4 MG/ML DISP.SYRIN. IV PRN (16:30)
[2016-07-11 17:32] VITALS: BP 179/96
[2016-07-11] MEDS ORDERED: AMLO5TAB2 PO (17:43)
[2016-07-11] MEDS ORDERED: METO50TA2 PO (17:43)
[2016-07-11] MEDS ORDERED: ESOM20CA PO (17:43)
[2016-07-11] MEDS ORDERED: AMIT10TA PO (17:43)
[2016-07-11] MEDS ORDERED: CLON1TAB3 PO (17:43)
[2016-07-11] MEDS: ENOXAPARIN 40 MG/0.4 ML DISP.SYRIN. SQ SCH (18:08)
[2016-07-11] MEDS: POTASSIUM CL 20MEQ D5-0.45NACL 1,000 ML IV SCH (18:10)
[2016-07-11 19:00] VITALS: BP 165/75
[2016-07-11 23:47] VITALS: BP 176/72
[2016-07-12 02:56] VITALS: BP 128/80
--- NOTE | 2016-07-12 05:00 | CONS ---
DATE OF CONSULTATION: 07/11/2016 REQUESTING PHYSICIAN: Dr. Deyanira Albrecht. REASON FOR CONSULTATION: CLL with worsening leukocytosis. HISTORY OF PRESENT ILLNESS: The patient is an 85-year-old female who has a history of colon cancer in 1975 and she had surgery and a colostomy placement. A CT scan was done in August 2014 for workup of abdominal pain and she was noted to have mild periportal, retroperitoneal and left pelvic lymphadenopathy. She underwent fine needle aspiration of the left iliac lymph node on 09/15/2014 that was negative for malignancy. She underwent flow cytometry on 08/28/2015 for workup of leukocytosis and this revealed chronic lymphocytic leukemia. With the presence of lymphadenopathy, this was staged as a stage I, CLL. She has never been treated with chemotherapy. Her WBC count on 06/03/2016 was 17.5 with hemoglobin of 10.6 and platelet count of 139,000. She was admitted to [facility] on 07/11/2016 with complaints of constipation. The patient has chronic history of constipation and she has been taking laxatives on and off and she has also been evaluated by Gastroenterology in the past. She was brought into the Emergency Room for constipation. She underwent a CT scan of the abdomen and pelvis on 07/11/2016 which revealed small ventral hernia that contains a short segment of mid transverse colon. Colon proximal to this region is dilated and fluid filled, which could suggest a low grade obstruction. There is mild retroperitoneal iliac chain, inguinal lymphadenopathy. Her WBC on 07/11/2016 was elevated at 41.1 with a hemoglobin of 11.0, platelet count 194 and 34.1 lymphocytes and hence I was consulted for further evaluation. PAST MEDICAL HISTORY: Hypertension, colon cancer, arthritis, osteoporosis, hysterectomy, cholecystectomy, colon surgery, lymph node biopsy. FAMILY HISTORY: Positive for hypertension and arthritis. SOCIAL HISTORY: She is a never smoker. REVIEW OF SYSTEMS: A 12-point review of system was performed. Pertinent positives are mentioned in the history of present illness. Rest of the system review is negative. PHYSICAL EXAMINATION: GENERAL APPEARANCE: The patient is an 85-year-old female who is in no acute cardiorespiratory distress. VITAL SIGNS: Blood pressure 137/68, temperature 98.0. HEAD: Atraumatic, normocephalic. EYES: No icterus. NECK: Supple. CHEST: Bilaterally symmetrical. No crepitations or rhonchi heard. HEART: S1, S2 normal. ABDOMEN: Soft, nontender, no hepatosplenomegaly. CENTRAL NERVOUS SYSTEM: No focal deficits. LYMPHATICS: She does have evidence of subcentimeter lymphadenopathy in the right cervical region. SKIN: No rashes. PSYCHOLOGIC: Mood and affect are appropriate. MUSCULOSKELETAL: No joint effusions. IMPRESSION AND PLAN: 1. Stage I chronic lymphocytic leukemia diagnosed 08/28/2015 by flow cytometry. She has evidence of leukocytosis/lymphocytosis and evidence of lymphadenopathy in the cervical region, periportal, retroperitoneal, iliac and inguinal region. Her WBC is significantly worse. It was 17.5 on 06/03/2016 and now it has increased to 41.1. However, the hemoglobin is still at a desirable range of 11 and platelets are normal at 194,000. Hence, there is no indication to initiate chemotherapy at this point. I discussed in detail with the patient and she understands and agrees with the plan. There is no evidence of bands and there is no clinical evidence to suggest an infection. I would continue to monitor this. 2. Constipation. Management by primary team. 3. Small bowel obstruction. Appreciate surgical consultation. 4. Lymphadenopathy due to chronic lymphocytic leukemia. PATO ROMAN MD DR: ANSELMO/sejal JOB#: [id number] / [id number] DERRICKD
[2016-07-12] MEDS: POTASSIUM CL 20MEQ D5-0.45NACL 1,000 ML IV SCH (05:35)
[2016-07-12 06:20] LABS: BASO % 0 % (0-3); EOS % 0 % (0-3); HEMATOCRIT 36.3 % (36.0-47.0); LYMPH % 83 % (24-48); MONO % 3 % (0-9); NEUT % 14 % (31-73)
[2016-07-12 06:21] LABS: CALCIUM 9.5 mg/dL (8.5-10.1); CREATININE 0.8 mg/dL (0.6-1.0); GFR 82.1; POTASSIUM 3.8 mmol/L (3.5-5.1)
[2016-07-12 06:42] LABS: WHITE BLOOD COUNT 37.7 x10^3/uL (4.0-11.0)
[2016-07-12 06:43] LABS: HEMOGLOBIN 11.7 g/dL (12.0-15.5); LYMPH # 31.4 x10^3/uL (1.0-4.8); MEAN CORPUSCULAR HEMOGLOBIN 30 pg (25-35); MEAN CORPUSCULAR HGB CONC 32 g/dL (31-37); MEAN CORPUSCULAR VOLUME 92 fL (79-100); PLATELET COUNT 204 x10^3/uL (140-400); RED BLOOD COUNT 3.97 x10^6/uL (3.50-5.40); RED CELL DISTRIBUTION WIDTH 13.4 % (11.5-14.5)
[2016-07-12 07:00] VITALS: BP 140/81
--- NOTE | 2016-07-12 10:40 | PDOC ---
SURGICAL PROGRESS NOTE Subjective no abdominal pain no nausea or emesis main complaint is reflux from not having her meds Vital Signs Vital Signs Date Time Temp Pulse Resp B/P Pulse Ox O2 Delivery O2 Flow Rate FiO2 07/12/16 08:10 Room Air 07/12/16 07:00 97.8 88 18 140/81 96 97.8 I&O Intake and Output 07/12/16 07:00 Intake Total 240 ml Output Total 0 ml Balance 240 ml Intake Oral 240 ml Output Urine Total 0 ml # Voids 2 General: Alert, Cooperative, No acute distress Abdomen: Soft, No tenderness, Other (ND, ostomy with stool) Labs Laboratory Tests Test 07/11/16 03:44 07/11/16 04:10 07/11/16 04:22 07/11/16 12:00 White Blood Count 41.1x10^3/uL (4.0-11.0) Red Blood Count 3.71x10^6/uL (3.50-5.40) Hemoglobin 11.0g/dL (12.0-15.5) Hematocrit 34.8% (36.0-47.0) Mean Corpuscular Volume 94fL (79-100) Mean Corpuscular Hemoglobin 30pg (25-35) Mean Corpuscular Hemoglobin Concent 32g/dL (31-37) Red Cell Distribution Width 13.5% (11.5-14.5) Platelet Count 194x10^3/uL (140-400) Neutrophils (%) (Auto) 14% (31-73) Lymphocytes (%) (Auto) 83% (24-48) Monocytes (%) (Auto) 3% (0-9) Eosinophils (%) (Auto) 0% (0-3) Basophils (%) (Auto) 0% (0-3) Neutrophils # (Auto) 5.7x10^3uL (1.8-7.7) Lymphocytes # (Auto) 34.1x10^3/uL (1.0-4.8) Monocytes # (Auto) 1.1x10^3/uL (0.0-1.1) Eosinophils # (Auto) 0.1x10^3/uL (0.0-0.7) Basophils # (Auto) 0.2x10^3/uL (0.0-0.2) Segmented Neutrophils % 17% (35-66) Lymphocytes % 79% (24-48) Monocytes % 4% (0-10) Smudge Cells Present Platelet Estimate Adequate (ADEQUATE) Giant Platelets Occ Sodium Level 148mmol/L (136-145) 148mmol/L (136-145) Potassium Level 2.9mmol/L (3.5-5.1) 3.3mmol/L (3.5-5.1) Chloride Level 105mmol/L (98-107) 107mmol/L (98-107) Carbon Dioxide Level 34mmol/L (21-32) 31mmol/L (21-32) Anion Gap 9 (6-14) 10 (6-14) Blood Urea Nitrogen 13mg/dL (7-20) 9mg/dL (7-20) Creatinine 0.8mg/dL (0.6-1.0) 0.8mg/dL (0.6-1.0) Estimated GFR (Cockcroft-Gault) 67.8 82.1 BUN/Creatinine Ratio 16 (6-20) Glucose Level 104mg/dL (70-99) 102mg/dL (70-99) Calcium Level 9.8mg/dL (8.5-10.1) 9.9mg/dL (8.5-10.1) Total Bilirubin 0.9mg/dL (0.2-1.0) Aspartate Amino Transf (AST/SGOT) 15U/L (15-37) Alanine Aminotransferase (ALT/SGPT) 17U/L (14-59) Alkaline Phosphatase 114U/L (46-116) Total Protein 7.9g/dL (6.4-8.2) Albumin 3.7g/dL (3.4-5.0) Albumin/Globulin Ratio 0.9 (1.0-1.7) Lipase 89U/L (73-393) Urine Collection Type U cath Urine Color Yellow Urine Clarity Clear Urine pH 7.5 Urine Specific [place] <=1.005 Urine Protein Negativemg/dL (NEG-TRACE) Urine Glucose (UA) Negativemg/dL (NEG) Urine Ketones (Stick) Negativemg/dL (NEG) Urine Blood Trace (NEG) Urine Nitrite Negative (NEG) Urine Bilirubin Negative (NEG) Urine Urobilinogen Dipstick 1.0mg/dL (0.2 mg/dL) Urine Leukocyte Esterase Negative (NEG) Urine RBC 1-2/HPF (0-2) Urine WBC Occ/HPF (0-4) Urine Squamous Epithelial Cells Occ/LPF Urine Amorphous Sediment Present/HPF Urine Bacteria 0/HPF (0-FEW) Urine Mucus Slight/LPF Lactic Acid Level 1.0mmol/L (0.4-2.0) Test 07/12/16 05:30 White Blood Count 37.7x10^3/uL (4.0-11.0) Red Blood Count 3.97x10^6/uL (3.50-5.40) Hemoglobin 11.7g/dL (12.0-15.5) Hematocrit 36.3% (36.0-47.0) Mean Corpuscular Volume 92fL (79-100) Mean Corpuscular Hemoglobin 30pg (25-35) Mean Corpuscular Hemoglobin Concent 32g/dL (31-37) Red Cell Distribution Width 13.4% (11.5-14.5) Platelet Count 204x10^3/uL (140-400) Neutrophils (%) (Auto) 14% (31-73) Lymphocytes (%) (Auto) 83% (24-48) Monocytes (%) (Auto) 3% (0-9) Eosinophils (%) (Auto) 0% (0-3) Basophils (%) (Auto) 0% (0-3) Neutrophils # (Auto) 5.2x10^3uL (1.8-7.7) Lymphocytes # (Auto) 31.4x10^3/uL (1.0-4.8) Monocytes # (Auto) 1.0x10^3/uL (0.0-1.1) Eosinophils # (Auto) 0.1x10^3/uL (0.0-0.7) Basophils # (Auto) 0.0x10^3/uL (0.0-0.2) Sodium Level 144mmol/L (136-145) Potassium Level 3.8mmol/L (3.5-5.1) Chloride Level 106mmol/L (98-107) Carbon Dioxide Level 30mmol/L (21-32) Anion Gap 8 (6-14) Blood Urea Nitrogen 9mg/dL (7-20) Creatinine 0.8mg/dL (0.6-1.0) Estimated GFR (Cockcroft-Gault) 82.1 Glucose Level 104mg/dL (70-99) Calcium Level 9.5mg/dL (8.5-10.1) Laboratory Tests Test 07/11/16 12:00 07/12/16 05:30 Sodium Level 148mmol/L (136-145) 144mmol/L (136-145) Potassium Level 3.3mmol/L (3.5-5.1) 3.8mmol/L (3.5-5.1) Chloride Level 107mmol/L (98-107) 106mmol/L (98-107) Carbon Dioxide Level 31mmol/L (21-32) 30mmol/L (21-32) Anion Gap 10 (6-14) 8 (6-14) Blood Urea Nitrogen 9mg/dL (7-20) 9mg/dL (7-20) Creatinine 0.8mg/dL (0.6-1.0) 0.8mg/dL (0.6-1.0) Estimated GFR (Cockcroft-Gault) 82.1 82.1 Glucose Level 102mg/dL (70-99) 104mg/dL (70-99) Calcium Level 9.9mg/dL (8.5-10.1) 9.5mg/dL (8.5-10.1) White Blood Count 37.7x10^3/uL (4.0-11.0) Red Blood Count 3.97x10^6/uL (3.50-5.40) Hemoglobin 11.7g/dL (12.0-15.5) Hematocrit 36.3% (36.0-47.0) Mean Corpuscular Volume 92fL (79-100) Mean Corpuscular Hemoglobin 30pg (25-35) Mean Corpuscular Hemoglobin Concent 32g/dL (31-37) Red Cell Distribution Width 13.4% (11.5-14.5) Platelet Count 204x10^3/uL (140-400) Neutrophils (%) (Auto) 14% (31-73) Lymphocytes (%) (Auto) 83% (24-48) Monocytes (%) (Auto) 3% (0-9) Eosinophils (%) (Auto) 0% (0-3) Basophils (%) (Auto) 0% (0-3) Neutrophils # (Auto) 5.2x10^3uL (1.8-7.7) Lymphocytes # (Auto) 31.4x10^3/uL (1.0-4.8) Monocytes # (Auto) 1.0x10^3/uL (0.0-1.1) Eosinophils # (Auto) 0.1x10^3/uL (0.0-0.7) Basophils # (Auto) 0.0x10^3/uL (0.0-0.2) Problem List Problems Medical Problems: (1) Abdominal pain Status: Acute (2) Hyperkalemia Status: Acute (3) Hypokalemia Status: Acute (4) SBO (small bowel obstruction) Status: Acute Assessment/Plan no abdominal findings, no pain, having stool wbc down, 31, CLL start clears Problems: MAURO JOYA APRN Jul 12, 2016 10:40
[2016-07-12 11:00] VITALS: BP 135/79
[2016-07-12] MEDS ORDERED: AMLODIPINE BESYLATE 5 MG TABLET PO SCH (11:00)
[2016-07-12] MEDS ORDERED: METOPROLOL TART IMMED RELEASE 50 MG TABLET PO SCH (11:00)
[2016-07-12] MEDS ORDERED: PANTOPRAZOLE 40 MG TABLET. PO SCH (11:30)
--- NOTE | 2016-07-12 12:09 | PDOC ---
PROGRESS NOTES Subjective Subjective c/c - f/u of CLL ROS - no abd pain Objective Objective Vital Signs Date Time Temp Pulse Resp B/P Pulse Ox O2 Delivery O2 Flow Rate FiO2 07/12/16 11:00 97.8 87 18 135/79 96 Room Air 97.8 Intake and Output 07/12/16 07:00 Intake Total 240 ml Output Total 0 ml Balance 240 ml Intake Oral 240 ml Output Urine Total 0 ml # Voids 2 Physical Exam Abdomen: Soft Heart: Normal S1, Normal S2 General: Alert, Oriented X3 Lungs: Clear to auscultation Psych/Mental Status: Mental status NL Assessment Assessment Problems Medical Problems: (1) Abdominal pain Status: Acute (2) Hyperkalemia Status: Acute (3) Hypokalemia Status: Acute (4) SBO (small bowel obstruction) Status: Acute IMPRESSION AND PLAN: 1. Stage I chronic lymphocytic leukemia diagnosed 08/28/2015 by flow cytometry. She has evidence of leukocytosis/lymphocytosis and evidence of lymphadenopathy in the cervical region, periportal, retroperitoneal, iliac and inguinal region. Her WBC is significantly worse. It was 17.5 on 06/03/2016 and now it has increased to 41.1 on 07/12/16.. WBC 37.7 07/12/15. I would continue to monitor this. 2. Constipation. Management by primary team. 3. Small bowel obstruction. Appreciate surgical consultation. 4. Lymphadenopathy due to chronic lymphocytic leukemia. Comment Review of Relevant I have reviewed the following items popeye (where applicable) has been applied. Labs Laboratory Tests Test 07/11/16 03:44 07/11/16 04:10 07/11/16 04:22 07/11/16 12:00 White Blood Count 41.1x10^3/uL (4.0-11.0) Red Blood Count 3.71x10^6/uL (3.50-5.40) Hemoglobin 11.0g/dL (12.0-15.5) Hematocrit 34.8% (36.0-47.0) Mean Corpuscular Volume 94fL (79-100) Mean Corpuscular Hemoglobin 30pg (25-35) Mean Corpuscular Hemoglobin Concent 32g/dL (31-37) Red Cell Distribution Width 13.5% (11.5-14.5) Platelet Count 194x10^3/uL (140-400) Neutrophils (%) (Auto) 14% (31-73) Lymphocytes (%) (Auto) 83% (24-48) Monocytes (%) (Auto) 3% (0-9) Eosinophils (%) (Auto) 0% (0-3) Basophils (%) (Auto) 0% (0-3) Neutrophils # (Auto) 5.7x10^3uL (1.8-7.7) Lymphocytes # (Auto) 34.1x10^3/uL (1.0-4.8) Monocytes # (Auto) 1.1x10^3/uL (0.0-1.1) Eosinophils # (Auto) 0.1x10^3/uL (0.0-0.7) Basophils # (Auto) 0.2x10^3/uL (0.0-0.2) Segmented Neutrophils % 17% (35-66) Lymphocytes % 79% (24-48) Monocytes % 4% (0-10) Smudge Cells Present Platelet Estimate Adequate (ADEQUATE) Giant Platelets Occ Sodium Level 148mmol/L (136-145) 148mmol/L (136-145) Potassium Level 2.9mmol/L (3.5-5.1) 3.3mmol/L (3.5-5.1) Chloride Level 105mmol/L (98-107) 107mmol/L (98-107) Carbon Dioxide Level 34mmol/L (21-32) 31mmol/L (21-32) Anion Gap 9 (6-14) 10 (6-14) Blood Urea Nitrogen 13mg/dL (7-20) 9mg/dL (7-20) Creatinine 0.8mg/dL (0.6-1.0) 0.8mg/dL (0.6-1.0) Estimated GFR (Cockcroft-Gault) 67.8 82.1 BUN/Creatinine Ratio 16 (6-20) Glucose Level 104mg/dL (70-99) 102mg/dL (70-99) Calcium Level 9.8mg/dL (8.5-10.1) 9.9mg/dL (8.5-10.1) Total Bilirubin 0.9mg/dL (0.2-1.0) Aspartate Amino Transf (AST/SGOT) 15U/L (15-37) Alanine Aminotransferase (ALT/SGPT) 17U/L (14-59) Alkaline Phosphatase 114U/L (46-116) Total Protein 7.9g/dL (6.4-8.2) Albumin 3.7g/dL (3.4-5.0) Albumin/Globulin Ratio 0.9 (1.0-1.7) Lipase 89U/L (73-393) Urine Collection Type U cath Urine Color Yellow Urine Clarity Clear Urine pH 7.5 Urine Specific [place] <=1.005 Urine Protein Negativemg/dL (NEG-TRACE) Urine Glucose (UA) Negativemg/dL (NEG) Urine Ketones (Stick) Negativemg/dL (NEG) Urine Blood Trace (NEG) Urine Nitrite Negative (NEG) Urine Bilirubin Negative (NEG) Urine Urobilinogen Dipstick 1.0mg/dL (0.2 mg/dL) Urine Leukocyte Esterase Negative (NEG) Urine RBC 1-2/HPF (0-2) Urine WBC Occ/HPF (0-4) Urine Squamous Epithelial Cells Occ/LPF Urine Amorphous Sediment Present/HPF Urine Bacteria 0/HPF (0-FEW) Urine Mucus Slight/LPF Lactic Acid Level 1.0mmol/L (0.4-2.0) Test 07/12/16 05:30 White Blood Count 37.7x10^3/uL (4.0-11.0) Red Blood Count 3.97x10^6/uL (3.50-5.40) Hemoglobin 11.7g/dL (12.0-15.5) Hematocrit 36.3% (36.0-47.0) Mean Corpuscular Volume 92fL (79-100) Mean Corpuscular Hemoglobin 30pg (25-35) Mean Corpuscular Hemoglobin Concent 32g/dL (31-37) Red Cell Distribution Width 13.4% (11.5-14.5) Platelet Count 204x10^3/uL (140-400) Neutrophils (%) (Auto) 14% (31-73) Lymphocytes (%) (Auto) 83% (24-48) Monocytes (%) (Auto) 3% (0-9) Eosinophils (%) (Auto) 0% (0-3) Basophils (%) (Auto) 0% (0-3) Neutrophils # (Auto) 5.2x10^3uL (1.8-7.7) Lymphocytes # (Auto) 31.4x10^3/uL (1.0-4.8) Monocytes # (Auto) 1.0x10^3/uL (0.0-1.1) Eosinophils # (Auto) 0.1x10^3/uL (0.0-0.7) Basophils # (Auto) 0.0x10^3/uL (0.0-0.2) Sodium Level 144mmol/L (136-145) Potassium Level 3.8mmol/L (3.5-5.1) Chloride Level 106mmol/L (98-107) Carbon Dioxide Level 30mmol/L (21-32) Anion Gap 8 (6-14) Blood Urea Nitrogen 9mg/dL (7-20) Creatinine 0.8mg/dL (0.6-1.0) Estimated GFR (Cockcroft-Gault) 82.1 Glucose Level 104mg/dL (70-99) Calcium Level 9.5mg/dL (8.5-10.1) Laboratory Tests Test 07/12/16 05:30 White Blood Count 37.7x10^3/uL (4.0-11.0) Red Blood Count 3.97x10^6/uL (3.50-5.40) Hemoglobin 11.7g/dL (12.0-15.5) Hematocrit 36.3% (36.0-47.0) Mean Corpuscular Volume 92fL (79-100) Mean Corpuscular Hemoglobin 30pg (25-35) Mean Corpuscular Hemoglobin Concent 32g/dL (31-37) Red Cell Distribution Width 13.4% (11.5-14.5) Platelet Count 204x10^3/uL (140-400) Neutrophils (%) (Auto) 14% (31-73) Lymphocytes (%) (Auto) 83% (24-48) Monocytes (%) (Auto) 3% (0-9) Eosinophils (%) (Auto) 0% (0-3) Basophils (%) (Auto) 0% (0-3) Neutrophils # (Auto) 5.2x10^3uL (1.8-7.7) Lymphocytes # (Auto) 31.4x10^3/uL (1.0-4.8) Monocytes # (Auto) 1.0x10^3/uL (0.0-1.1) Eosinophils # (Auto) 0.1x10^3/uL (0.0-0.7) Basophils # (Auto) 0.0x10^3/uL (0.0-0.2) Sodium Level 144mmol/L (136-145) Potassium Level 3.8mmol/L (3.5-5.1) Chloride Level 106mmol/L (98-107) Carbon Dioxide Level 30mmol/L (21-32) Anion Gap 8 (6-14) Blood Urea Nitrogen 9mg/dL (7-20) Creatinine 0.8mg/dL (0.6-1.0) Estimated GFR (Cockcroft-Gault) 82.1 Glucose Level 104mg/dL (70-99) Calcium Level 9.5mg/dL (8.5-10.1) Medications Current Medications Iohexol (Omnipaque 300 Mg/ml) 75 ml 1X ONCE IV Last administered on 07/11/16 05:18; Start 07/11/16 at 05:00; Stop 07/11/16 at 05:01; Status DC Info 1 each 1 each PRN DAILY PRN MC SEE COMMENTS; Start 07/11/16 at 04:45; Stop 07/13/16 at 04:44 Potassium Chloride/Sodium Chloride (KCl 40 Meq-NS 1,000 ml Iv Soln) 1,000 ml @ 75 mls/hr 1X ONCE IV Last administered on 07/11/16 06:18; Start 07/11/16 at 06:00; Stop 07/11/16 at 19:19; Status DC Potassium Chloride (KCl Oral Soln) 40 meq 1X ONCE PO Last administered on 07/11 06:17; Start 07/11/16 at 06:00; Stop 07/11/16 at 06:01; Status DC Ondansetron HCl (Zofran) 4 mg PRN Q8HRS PRN IV NAUSEA/VOMITING; Start 07/11/16 at 07:15; Stop 07/12/16 at 07:14; Status DC Fentanyl Citrate (Fentanyl 2ml Vial) 50 mcg PRN Q2HR PRN IV PAIN; Start at 07:15; Stop 07/12/16 at 07:14; Status DC Acetaminophen 650 mg 650 mg PRN Q4HRS PRN PO FEVER; Start 07/11/16 at 07:15; Stop 07/12/16 at 07:14; Status DC Potassium Chloride/Dextrose/ Sod Cl (KCl 20 Meq In D5W-1/2 NS) 1,000 ml @ 75 mls/hr [id number] IV Last administered on 07/11/16 18:10; Start 07/11/16 at 16:15 Acetaminophen (Tylenol) 650 mg PRN Q6HRS PRN PO MILD PAIN / TEMP; Start at 16:15 Ondansetron HCl (Zofran) 4 mg PRN Q6HRS PRN IV NAUSEA/VOMITING; Start 07/11/16 at 16:15 Enoxaparin Sodium (Lovenox 40mg Syringe) 40 mg Q24H SQ Last administered on 18:08; Start 07/11/16 at 17:00 Morphine Sulfate 2 mg PRN Q2HR PRN IV PAIN; Start 07/11/16 at 16:30 Morphine Sulfate 4 mg PRN Q2HR PRN IV PAIN Last administered on 07/11/16 21:44 ; Start 07/11/16 at 16:30 Amitriptyline HCl (Elavil) 10 mg HS PO ; Start 07/12/16 at 21:00 Amlodipine Besylate (Norvasc) 5 mg DAILY PO ; Start 07/12/16 at 11:00 Clonazepam (Klonopin) 1 mg HS PO ; Start 07/12/16 at 21:00 Metoprolol Tartrate (Lopressor) 50 mg BID PO ; Start 07/12/16 at 11:00 Pantoprazole Sodium (Protonix) 40 mg DAILYAC PO ; Start 07/12/16 at 11:30 Active Scripts Active Reported Nexium Capsule (Esomeprazole Magnesium) 20 Mg Capsule.dr 20 Mg PO DAILYAC Clonazepam 1 Mg Tablet 1 Mg PO HS Amitriptyline Hcl 10 Mg Tablet 10 Mg PO HS Metoprolol Tartrate 50 Mg Tablet 50 Mg PO BID Amlodipine Besylate 5 Mg Tablet 5 Mg PO DAILY Vitals/I & O Vital Sign - Last 24 Hours 07/11/16 07/11/16 07/11/16 07/11/16 12:30 13:30 14:30 15:15 Temp 97.7 97.7 Pulse 72 78 80 84 Resp 18 20 18 18 B/P 152/72 137/68 179/96 Pulse Ox 95 98 97 96 O2 Delivery Room Air Room Air Room Air Room Air 07/11/16 07/11/16 07/11/16 07/11/16 16:30 17:32 19:00 20:00 Temp 97.7 98.0 97.7 98.0 Pulse 84 73 Resp 18 B/P 179/96 165/75 Pulse Ox 96 98 O2 Delivery Room Air Room Air Room Air 07/11/16 07/11/16 07/11/16 07/12/16 21:44 22:14 23:47 02:56 Temp 97.8 98.6 97.8 98.6 Pulse 89 86 Resp 23 18 20 20 B/P 176/72 128/80 Pulse Ox 100 97 O2 Delivery Room Air Room Air Room Air Room Air 07/12/16 07/12/16 07/12/16 07:00 08:10 11:00 Temp 97.8 97.8 97.8 97.8 Pulse 88 87 Resp 18 18 B/P 140/81 135/79 Pulse Ox 96 96 O2 Delivery Room Air Room Air Room Air Intake and Output 07/11/16 07/11/16 07/12/16 15:00 23:00 07:00 Intake Total 240 ml Output Total 0 ml Balance 240 ml PATO ROMAN MD Jul 12, 2016 12:09
[2016-07-12 14:48] VITALS: BP 130/80
--- NOTE | 2016-07-12 16:50 | PDOC ---
PROGRESS NOTES Chief Complaint Chief Complaint Abd pain ASSESSMENT AND PLAN: 1. Abd pain: resolved, + BM, tolerating PO 2. Hypokalemia: resolved 3. CLL: stable. appreciate Dr Suresh's input 4. Dementia: progressive per daughter, ramirez in past 4-6 months. 5. Dispo: home today Vitals Vitals Vital Signs Date Time Temp Pulse Resp B/P Pulse Ox O2 Delivery O2 Flow Rate FiO2 07/12/16 14:48 97.8 87 18 130/80 96 Room Air 97.8 Physical Exam General: Alert, Cooperative, No acute distress Heart: Regular rate Lungs: Clear Abdomen: Normal bowel sounds, Soft, Other (LLQ ostomy w/ brown stool. CCY and midline scar, well healed. SNT) Skin: No rashes, No breakdown Labs LABS Laboratory Tests Test 07/12/16 05:30 White Blood Count 37.7x10^3/uL (4.0-11.0) Red Blood Count 3.97x10^6/uL (3.50-5.40) Hemoglobin 11.7g/dL (12.0-15.5) Hematocrit 36.3% (36.0-47.0) Mean Corpuscular Volume 92fL (79-100) Mean Corpuscular Hemoglobin 30pg (25-35) Mean Corpuscular Hemoglobin Concent 32g/dL (31-37) Red Cell Distribution Width 13.4% (11.5-14.5) Platelet Count 204x10^3/uL (140-400) Neutrophils (%) (Auto) 14% (31-73) Lymphocytes (%) (Auto) 83% (24-48) Monocytes (%) (Auto) 3% (0-9) Eosinophils (%) (Auto) 0% (0-3) Basophils (%) (Auto) 0% (0-3) Neutrophils # (Auto) 5.2x10^3uL (1.8-7.7) Lymphocytes # (Auto) 31.4x10^3/uL (1.0-4.8) Monocytes # (Auto) 1.0x10^3/uL (0.0-1.1) Eosinophils # (Auto) 0.1x10^3/uL (0.0-0.7) Basophils # (Auto) 0.0x10^3/uL (0.0-0.2) Sodium Level 144mmol/L (136-145) Potassium Level 3.8mmol/L (3.5-5.1) Chloride Level 106mmol/L (98-107) Carbon Dioxide Level 30mmol/L (21-32) Anion Gap 8 (6-14) Blood Urea Nitrogen 9mg/dL (7-20) Creatinine 0.8mg/dL (0.6-1.0) Estimated GFR (Cockcroft-Gault) 82.1 Glucose Level 104mg/dL (70-99) Calcium Level 9.5mg/dL (8.5-10.1) Review of Systems Review of Systems feels not quite right, but cannot elaborate what is wrong. specifically denies abd pain, nausea. appetite catyo MART MARCELO MD Jul 12, 2016 16:50
[2016-07-12] MEDS ORDERED: DOCU100C5 PO (16:55)
[2016-07-12] MEDS: ENOXAPARIN 40 MG/0.4 ML DISP.SYRIN. SQ SCH (17:00)
[2016-07-12] MEDS ORDERED: AMITRIPTYLINE HCL 10 MG TABLET PO SCH (21:00)
[2016-07-12] MEDS ORDERED: CLONAZEPAM 1 MG TABLET PO SCH (21:00)
--- NOTE | 2016-07-13 23:45 | DS ---
DATE OF DISCHARGE: 07/12/2016 CHIEF COMPLAINT: Abdominal pain. HOSPITAL COURSE: The patient is an 85-year-old -[place] woman with longstanding history of ostomy and recurrent abdominal pain who presented to the Emergency Room with diffuse abdominal pain and decreased output from her ostomy. This, however, resolved essentially on its own without any further intervention. In discussion with her daughter, as the patient is quite demented, it becomes apparent that the patient frequently has episodes of more constipation. Dementia has been getting worse in the past 6 months. With resolution of her symptoms, the patient was deemed stable for discharge on the . DISCHARGE EXAMINATION: Please refer to note from same date, discharge date 07/12/2016. DISCHARGE DISPOSITION: To home. DISCHARGE CONDITION: Improved. DISCHARGE DIAGNOSIS: Abdominal pain. DISCHARGE MEDICATIONS: Please refer to MAR. DISCHARGE INSTRUCTIONS: The patient will follow up with PCP in 1-2 weeks. MART MARCELO MD DR: DAVE/nts JOB#: [id number] / [id number] GUSTABO
== END 2016-07-12 17:30 | disposition home or self-care (01) | DRG 389 ==
LOC: ER 03:18 → ED HOLD 07:07 → 5 SOUTH 14:42
PROVIDERS: ADMIT Internal Medicine; ATTEND Internal Medicine
DX: K56.60 Unspecified intestinal obstruction (principal); C91.10 Chronic lymphocytic leukemia of B-cell type not having achieved remission; E66.9 Obesity, unspecified; M19.90 Unspecified osteoarthritis, unspecified site; E87.5 Hyperkalemia; E87.6 Hypokalemia; F03.90 Unspecified dementia, unspecified severity, without behavioral disturbance, psychotic disturbance, mood disturbance, and anxiety; I10 Essential (primary) hypertension; K21.9 Gastro-esophageal reflux disease without esophagitis; M54.5 Low back pain; K59.00 Constipation, unspecified; Z60.2 Problems related to living alone; M81.0 Age-related osteoporosis without current pathological fracture; Z82.49 Family history of ischemic heart disease and other diseases of the circulatory system; Z85.038 Personal history of other malignant neoplasm of large intestine; Z90.49 Acquired absence of other specified parts of digestive tract; Z93.3 Colostomy status; Z92.3 Personal history of irradiation; Z92.21 Personal history of antineoplastic chemotherapy; Z88.0 Allergy status to penicillin; Z88.2 Allergy status to sulfonamides; Z90.710 Acquired absence of both cervix and uterus
CPT/HCPCS: 36415; 51701; 70450; 71010; 74177; 80048; 80053; 81001; 83605; 83690; 85007; 85027; 93005; 96374; J1650; J2270; J3480; Q9967; 99285-25

== ENCOUNTER → 2017-07-29 | Outpatient (CLI) | payer MEDICARE, BC | END | disposition home or self-care (01) | LOC: RAD 10:50 | DX: M17.0 Bilateral primary osteoarthritis of knee (principal); M25.462 Effusion, left knee; M25.461 Effusion, right knee; M11.262 Other chondrocalcinosis, left knee; M11.261 Other chondrocalcinosis, right knee | CPT/HCPCS: 73560 ==

== ENCOUNTER 2017-09-12 06:06 | Emergency (ER) | payer MEDICARE, BC ==
[2017-09-12] MEDS ORDERED: FAMOTIDINE 20 MG/2 ML VIAL IVP (06:30)
[2017-09-12] MEDS: METOCLOPRAMIDE 10 MG TABLET. PO (06:57)
[2017-09-12] MEDS: FAMOTIDINE 20 MG TABLET. PO (06:57)
[2017-09-12 07:02] LABS: BASO % 0 % (0-3); EOS # 0.1 x10^3/uL (0.0-0.7); EOS % 0 % (0-3); HEMATOCRIT 37.2 % (36.0-47.0); HEMOGLOBIN 11.7 g/dL (12.0-15.5); LYMPH % 93 % (24-48); MEAN CORPUSCULAR HEMOGLOBIN 31 pg (25-35); MEAN CORPUSCULAR HGB CONC 31 g/dL (31-37); MEAN CORPUSCULAR VOLUME 97 fL (79-100); MONO # 0.8 x10^3/uL (0.0-1.1); MONO % 1 % (0-9); NEUT # 5.4 x10^3uL (1.8-7.7); NEUT % 6 % (31-73); PLATELET COUNT 174 x10^3/uL (140-400); RED BLOOD COUNT 3.83 x10^6/uL (3.50-5.40); RED CELL DISTRIBUTION WIDTH 13.9 % (11.5-14.5)
[2017-09-12 07:08] LABS: WHITE BLOOD COUNT 92.3 x10^3/uL (4.0-11.0)
[2017-09-12 07:09] LABS: ANION GAP 7 (6-14); BLOOD UREA NITROGEN 18 mg/dL (7-20); BUN/CREATININE RATIO 20 (6-20); CARBON DIOXIDE 29 mmol/L (21-32); CHLORIDE 106 mmol/L (98-107); CREATININE 0.9 mg/dL (0.6-1.0); GFR 71.5; GLUCOSE 97 mg/dL (70-99); POTASSIUM 4.1 mmol/L (3.5-5.1); SODIUM 142 mmol/L (136-145)
[2017-09-12 07:14] LABS: ADD MAN DIFF? YES
[2017-09-12 07:15] LABS: ALBUMIN 3.4 g/dL (3.4-5.0); ALBUMIN/GLOBULIN RATIO 0.9 (1.0-1.7); ALK PHOS 77 U/L (46-116); ALT (SGPT) 18 U/L (14-59); AST (SGOT) 16 U/L (15-37); TOTAL BILIRUBIN 1.8 mg/dL (0.2-1.0); TOTAL PROTEIN 7.2 g/dL (6.4-8.2)
[2017-09-12 07:17] LABS: TROPONINI < 0.017 ng/mL (0.000-0.055)
[2017-09-12 07:23] LABS: NT-PRO BNP 343 pg/mL (0-449)
[2017-09-12] MEDS: LIDO:MAALOX:DONNATAL 1:1:1 15 ML SINGLE DOSE SWSW (07:29)
[2017-09-12 14:15] LABS: % LYMPHS 92 % (24-48); % MONOS 4 % (0-10); % SEGS 4 % (35-66); PLT ESTIMATE ADEQUATE (ADEQUATE)
[2017-09-12 14:16] LABS: ANISOCYTOSIS SLIGHT; STOMATOCYTES OCC
== END 2017-09-12 08:20 | disposition home or self-care (01) ==
LOC: ER 06:06
DX: R07.89 Other chest pain (principal); C95.90 Leukemia, unspecified not having achieved remission; D72.829 Elevated white blood cell count, unspecified; R10.13 Epigastric pain; K21.9 Gastro-esophageal reflux disease without esophagitis; I10 Essential (primary) hypertension; Z88.0 Allergy status to penicillin; Z88.2 Allergy status to sulfonamides
CPT/HCPCS: 36415; 71045; 80053; 83880; 84484; 85007; 85025; 93005; 99285-25; J8597

== ENCOUNTER 2017-11-16 17:48 | Emergency (ER) | payer MEDICARE, BC ==
[2017-11-16 18:27] LABS: BILIRUBIN,URINE NEGATIVE (NEG); CLARITY,URINE CLEAR; COLOR,URINE YELLOW; GLUCOSE,URINE NEGATIVE (NEG); NITRITE,URINE NEGATIVE (NEG); PH,URINE 6.5; PROTEIN,URINE 30 mg/dL (NEG-TRACE)
[2017-11-16 18:31] LABS: BARBITURATES NEG (NEG); BENZODIAZEPINES NEG (NEG); CANNABINOIDS NEG (NEG); COCAINE NEG (NEG); METHADONE NEG (NEG); OPIATES NEG (NEG); PHENCYCLIDINE NEG (NEG)
[2017-11-16 18:33] LABS: AMPHETAMINE/METHAMPHETAMINE NEG (NEG); ETHANOL, URINE NEG (NEG)
[2017-11-16] MEDS: ONDANSETRON ODT 4 MG TAB.RAPDIS. PO (18:36)
[2017-11-16] MEDS: MORPHINE SULFATE 10 MG/ML VIAL. IM (18:39)
[2017-11-16] MEDS: LIDO:MAALOX 1:1 20 ML SINGLE DOSE. SWSW (18:43)
[2017-11-16 18:52] LABS: BACTERIA,URINE MANY /HPF (0-FEW); RBC,URINE 0 /HPF (0-2)
[2017-11-16 18:53] LABS: HYALINE CASTS, URINE MANY /HPF; SQUAMOUS EPITHELIAL CELL,UR MANY /LPF
== END 2017-11-16 19:12 | disposition home or self-care (01) ==
LOC: ER 17:48
DX: R10.32 Left lower quadrant pain (principal); K21.9 Gastro-esophageal reflux disease without esophagitis; I10 Essential (primary) hypertension; Z85.038 Personal history of other malignant neoplasm of large intestine; Z98.890 Other specified postprocedural states; Z88.0 Allergy status to penicillin; Z88.2 Allergy status to sulfonamides
CPT/HCPCS: 80307; 81001; 87086; 96372; 99284; J2270; Q0162

== ENCOUNTER 2017-12-25 03:28 | Emergency (ER) | payer MEDICARE, BC ==
[2017-12-25] MEDS: IV NORMAL SALINE 1000ML BAG 1,000 ML IV (04:59)
[2017-12-25] MEDS: DEXAMETHASONE SOD PHOS 20 MG/5 ML VIAL. IV (05:00)
[2017-12-25] MEDS: KETOROLAC 15 MG/ML VIAL. IV (05:00)
[2017-12-25] MEDS: ONDANSETRON PF 4 MG/2 ML VIAL. IV (05:01)
== END 2017-12-25 06:23 | disposition home or self-care (01) ==
LOC: ER 03:28
DX: R51 Headache (principal); R11.2 Nausea with vomiting, unspecified; I10 Essential (primary) hypertension; K21.9 Gastro-esophageal reflux disease without esophagitis; Z88.0 Allergy status to penicillin; Z88.2 Allergy status to sulfonamides
CPT/HCPCS: 70450; 96361; 96374; 96375; 99284-25; J1100; J1885; J2405; J7030

== ENCOUNTER 2018-01-09 11:27 | Emergency (ER) | payer MEDICARE, BC ==
[~2018-01-09] VITALS: Ht 165.1 cm; Wt 59.0 kg
[~2018-01-09 11:27] MED LIST: AMIT10TA PO; AMLO5TAB2 PO; BUTA1TAB23 PO; CLON1TAB4 PO; DOCU100C28 PO; ESOM20CA PO; METO50TA6 PO; ONDA4TAB10 SL; ONDA4TAB7 PO; SIME80TA PO
--- NOTE | 2018-01-09 12:05 | EKG ---
[facility] [address] [place] [address] Test Date: 2018-01-09 Test Time: 11:56:53 Pat Name: LILLIAM GROSSMAN Department: Room: Gender: F Practice Clinician: [id number] : 1930 Requested By: JACK SALINAS Order Number: [id number] Reading MD: Richi Peña MD Measurements Intervals [place] Rate: 64 P: 60 MA: 164 QRS: 49 QRSD: 76 T: 35 QT: 374 QTc: 386 Interpretive Statements SINUS RHYTHM Electronically Signed On 01-12-2018 10:36:15 CDT by Richi Peña MD
[2018-01-09 12:23] LABS: BILIRUBIN,URINE NEGATIVE (NEG); CLARITY,URINE CLEAR; COLOR,URINE YELLOW; NITRITE,URINE NEGATIVE (NEG); PROTEIN,URINE NEGATIVE (NEG-TRACE); UROBILINOGEN,URINE 0.2 mg/dL (0.2 mg/dL)
[2018-01-09 12:38] LABS: BACTERIA,URINE FEW /HPF (0-FEW); SQUAMOUS EPITHELIAL CELL,UR MOD /LPF; WBC,URINE 0 /HPF (0-4)
[2018-01-09 12:44] LABS: BASO # 0.1 x10^3/uL (0.0-0.2); BASO % 0 % (0-3); EOS % 0 % (0-3); HEMATOCRIT 33.4 % (36.0-47.0); HEMOGLOBIN 10.8 g/dL (12.0-15.5); LYMPH # 54.7 x10^3/uL (1.0-4.8); LYMPH % 90 % (24-48); MEAN CORPUSCULAR HEMOGLOBIN 32 pg (25-35); MEAN CORPUSCULAR HGB CONC 32 g/dL (31-37); MEAN CORPUSCULAR VOLUME 101 fL (79-100); MONO # 1.2 x10^3/uL (0.0-1.1); MONO % 2 % (0-9); NEUT # 4.8 x10^3uL (1.8-7.7); NEUT % 8 % (31-73); PLATELET COUNT 155 x10^3/uL (140-400); RED BLOOD COUNT 3.32 x10^6/uL (3.50-5.40); RED CELL DISTRIBUTION WIDTH 13.6 % (11.5-14.5)
[2018-01-09 12:47] LABS: CREATININE 0.8 mg/dL (0.6-1.0); GFR 81.7; POTASSIUM 3.6 mmol/L (3.5-5.1)
[2018-01-09 12:50] LABS: ALBUMIN 3.6 g/dL (3.4-5.0); ALBUMIN/GLOBULIN RATIO 1.2 (1.0-1.7); TOTAL BILIRUBIN 1.2 mg/dL (0.2-1.0); TOTAL PROTEIN 6.7 g/dL (6.4-8.2)
[2018-01-09] MEDS ORDERED: IOHEXOL 300 MG/ML 100ML VIAL. IV ONE (13:00)
[2018-01-09 13:06] LABS: WHITE BLOOD COUNT 60.8 x10^3/uL (4.0-11.0)
[2018-01-09] MEDS ORDERED: CONTRAST GIVEN. MC PRN (13:15)
--- NOTE | 2018-01-09 13:44 | RAD ---
CT Abdomen and Pelvis With Intravenous Contrast: History: Diffuse abdominal pain for 2 days. History of colorectal cancer. Comparison: CT abdomen pelvis July 11, 2016. Technique: After administration of intravenous contrast, 75 mL Omnipaque-300, CT of the abdomen and pelvis was performed. Exposure: One or more of the following individualized dose reduction techniques were utilized for this examination: 1. Automated exposure control 2. Adjustment of the mA and/or kV according to patient size 3. Use of iterative reconstruction technique Findings: Liver, spleen, pancreas, and bilateral adrenal glands are unremarkable. Gallbladder is not seen, and may be surgically absent. Bilateral kidneys enhance symmetrically. Urinary bladder is unremarkable. Uterus is absent. There appears to been abdominoperineal resection. Left lower quadrant end colostomy involving the sigmoid colon is seen. No bowel obstruction is seen. No free air or free fluid is appreciated. Umbilical hernia containing one wall of the transverse colon (retrocardiac) is unchanged. There is mild interval worsening of lymphadenopathy. Left para-aortic lymph node at the level of the left renal vein is axial dimension of 2.4 x 1.7 cm (previously 1.9 x 1.4). Largest right pericecal lymph node measures 2.5 x 1.2 cm (previously 1.9 x 0.8 cm). Other lymph nodes also demonstrated attendant increase. Largest lymph node at the ostomy site measures 1.4 x 0.9 cm in short axis (previously 1.3 x 0.9 cm). Right inguinal lymph node measures 1.9 x 0.7 cm (previously 1.9 x 0.5 cm). Mild superior endplate compression at L2 is unchanged. Impression: 1. No acute inflammatory process identified in the abdomen or pelvis. 2. Mild interval worsening of lymphadenopathy. Metastatic disease versus other causes (such as lymphoma or other lymphoproliferative disorder) are possible. Electronically signed by: Tahir Cazares MD (01/09/2018 1:40 PM) [place] [id number]
--- NOTE | 2018-01-09 13:51 | PHYS DOC ---
Past Medical History Past Medical History: Cancer, GERD, Hypertension, Other Additional Past Medical Histor: IBS Past Surgical History: Cancer Surgery, Cholecystectomy, Hysterectomy Additional Past Surgical Histo: hernia, colon ca Alcohol Use: None Drug Use: None Adult General Chief Complaint Chief Complaint: ABDOMINAL PAIN HPI HPI This is a pleasant 87-year-old female presenting to the emergency department today with abdominal pain. Pain is been present for 2 days. It comes and goes. She reports it feels like gas. She denies nausea and vomiting. Last bowel movement was on 08 January. She denies fevers chills. Review of systems is negative for chest pain shortness of breath fevers chills. All other review of systems is negative unless otherwise noted in history of present illness. ED course: 87-year-old female presenting the emergency department today with abdominal pain. On arrival she is afebrile with normal heart rate. The pressure is mildly elevated. On examination she is well-appearing. Her abdomen is soft nondistended nontender to palpation without rebound tenderness or guarding. Blood work shows significant white blood cell count. Patient has a history of CLL. Patient has an oncologist. On reexamination she continues to be soft and nontender. CT shows lymphoma findings otherwise no acute findings. I offered the patient admission for monitoring the patient desires to be discharged. We will go ahead and discharge patient follow-up with her doctor in 2-3 days.The patient has been examined and was not found to have an emergency medical condition. The patient was then discharged home in stable condition to follow up with their primary care physician over the next 2-3 days. They were to return if their symptoms worsened or if they were concerned for any reason. They were also instructed to return to the emergency department if they were unable to get the recommended and appropriate follow-up. [id number] discharge instructions and return precautions were given. Patient's questions were answered to their satisfaction. Patient is comfortable with plan. Review of Systems Review of Systems SEE ABOVE. Current Medications Current Medications Current Medications Medications (Trade) Dose Ordered Sig/Wilmer Start Time Stop Time Status Last Admin Dose Admin Info (CONTRAST GIVEN -- Rx MONITORING) 1 each PRN DAILY PRN 01/09/18 13:15 01/11/18 13:14 Iohexol (Omnipaque 300 Mg/ml) 75 ml 1X ONCE 01/09/18 13:00 01/09/18 13:01 DC Morphine Sulfate (Morphine Sulfate) 2 mg PRN Q2HR PRN 01/09/18 14:30 01/10/18 14:29 Ondansetron HCl (Zofran) 4 mg PRN Q8HRS PRN 01/09/18 14:30 01/10/18 14:29 Sodium Chloride 1,000 ml @ 100 mls/hr Q10H 01/09/18 14:29 01/10/18 14:28 Allergies Allergies Allergies Coded Allergies Type Severity Reaction Last Updated Verified Penicillins Allergy Intermediate 07/11/16 Yes Sulfa (Sulfonamide Antibiotics) Allergy Intermediate 07/11/16 Yes Physical Exam Physical Exam SEE ABOVE Constitutional: Well developed, well nourished, no acute distress, non-toxic appearance. [] HENT: Normocephalic, atraumatic, bilateral external ears normal, oropharynx moist, no oral exudates, nose normal. [] Eyes: PERRLA, EOMI, conjunctiva normal, no discharge. [] Neck: Normal range of motion, no tenderness, supple, no stridor. [] Cardiovascular:Heart rate regular rhythm, no murmur [] Lungs & Thorax: Bilateral breath sounds clear to auscultation [] Abdomen: Bowel sounds normal, soft, no tenderness, no masses, no pulsatile masses. [] Skin: Warm, dry, no erythema, no rash. [] Back: No tenderness, no CVA tenderness. [] Extremities: No tenderness, no cyanosis, no clubbing, ROM intact, no edema. [] Neurologic: Alert and oriented X 3, normal motor function, normal sensory function, no focal deficits noted. [] Psychologic: Affect normal, judgement normal, mood normal. [] Current Patient Data Vital Signs Vital Signs Date Time Temp Pulse Resp B/P (MAP) Pulse Ox O2 Delivery O2 Flow Rate FiO2 01/09/18 13:30 68 24 137/72 (93) 99 01/09/18 11:35 98.3 Room Air 98.3 Lab Values Laboratory Tests Test 01/09/18 11:45 01/09/18 12:25 Urine Collection Type Unknown Urine Color Yellow Urine Clarity Clear Urine pH 6.0 Urine Specific [place] 1.010 Urine Protein Negative mg/dL (NEG-TRACE) Urine Glucose (UA) Negative mg/dL (NEG) Urine Ketones (Stick) Negative mg/dL (NEG) Urine Blood Trace (NEG) Urine Nitrite Negative (NEG) Urine Bilirubin Negative (NEG) Urine Urobilinogen Dipstick 0.2 mg/dL (0.2 mg/dL) Urine Leukocyte Esterase Negative (NEG) Urine RBC 3-5 /HPF (0-2) Urine WBC 0 /HPF (0-4) Urine Squamous Epithelial Cells Mod /LPF Urine Bacteria Few /HPF (0-FEW) Urine Mucus Mod /LPF White Blood Count 60.8 x10^3/uL (4.0-11.0) *H Red Blood Count 3.32 x10^6/uL (3.50-5.40) L Hemoglobin 10.8 g/dL (12.0-15.5) L Hematocrit 33.4 % (36.0-47.0) L Mean Corpuscular Volume 101 fL (79-100) H Mean Corpuscular Hemoglobin 32 pg (25-35) Mean Corpuscular Hemoglobin Concent 32 g/dL (31-37) Red Cell Distribution Width 13.6 % (11.5-14.5) Platelet Count 155 x10^3/uL (140-400) Neutrophils (%) (Auto) 8 % (31-73) L Lymphocytes (%) (Auto) 90 % (24-48) H Monocytes (%) (Auto) 2 % (0-9) Eosinophils (%) (Auto) 0 % (0-3) Basophils (%) (Auto) 0 % (0-3) Neutrophils # (Auto) 4.8 x10^3uL (1.8-7.7) Lymphocytes # (Auto) 54.7 x10^3/uL (1.0-4.8) H Monocytes # (Auto) 1.2 x10^3/uL (0.0-1.1) H Eosinophils # (Auto) 0.0 x10^3/uL (0.0-0.7) Basophils # (Auto) 0.1 x10^3/uL (0.0-0.2) Segmented Neutrophils % 5 % (35-66) L Lymphocytes % 95 % (24-48) H Smudge Cells Present Platelet Estimate Adequate (ADEQUATE) Sodium Level 144 mmol/L (136-145) Potassium Level 3.6 mmol/L (3.5-5.1) Chloride Level 107 mmol/L (98-107) Carbon Dioxide Level 30 mmol/L (21-32) Anion Gap 7 (6-14) Blood Urea Nitrogen 14 mg/dL (7-20) Creatinine 0.8 mg/dL (0.6-1.0) Estimated GFR (Cockcroft-Gault) 81.7 BUN/Creatinine Ratio 18 (6-20) Glucose Level 91 mg/dL (70-99) Calcium Level 10.0 mg/dL (8.5-10.1) Total Bilirubin 1.2 mg/dL (0.2-1.0) H Aspartate Amino Transferase (AST) 14 U/L (15-37) L Alanine Aminotransferase (ALT) 16 U/L (14-59) Alkaline Phosphatase 91 U/L (46-116) Troponin I Quantitative < 0.017 ng/mL (0.000-0.055) Total Protein 6.7 g/dL (6.4-8.2) Albumin 3.6 g/dL (3.4-5.0) Albumin/Globulin Ratio 1.2 (1.0-1.7) Lipase 117 U/L (73-393) Laboratory Tests 01/09/18 12:25 Laboratory Tests 01/09/18 12:25 EKG EKG [] Radiology/Procedures Radiology/Procedures [] Course & Med Decision Making Course & Med Decision Making Pertinent Labs and Imaging studies reviewed. (See chart for details) [] Dragon Disclaimer Dragon Disclaimer This electronic medical record was generated, in whole or in part, using a voice recognition dictation system. Departure Departure Impression: Primary Impression: Abdominal pain Disposition: 01 HOME, SELF-CARE Condition: STABLE Referrals: DASIA LEAL (PCP) Patient Instructions: Abdominal Pain Additional Instructions: Thank you for allowing us to participate in your care today. Return to the emergency department you have any new or worsening symptoms, or if you are concerned for any reason. Return to emergency department if you have any new or concerning symptoms including but not limited to fever, chills, nausea, vomiting, intractable pain, any new rashes, chest pain, shortness of air , uncontrolled bleeding, difficulty breathing, and/or vision loss. Follow up with your primary care physician within 3 days. Call your Primary Doctor tomorrow and inform them of your visit today. If you do not have a primary care provider we are happy to provide you with a list of our primary care providers contact information. This condition should be evaluated by your primary care physician and any recommended consulting services for continued management within 2-3 days after discharge. If at any time, you are having difficulty getting into your primary care doctor or a specialist, return to the emergency department. JACK SALINAS MD Jan 09, 2018 13:50
[2018-01-09 13:58] LABS: % LYMPHS 95 % (24-48); % SEGS 5 % (35-66); PLT ESTIMATE ADEQUATE (ADEQUATE); SMUDGE CELLS PRESENT
[2018-01-09] MEDS ORDERED: IV NORMAL SALINE 1000ML BAG 1,000 ML IV SCH (14:29)
[2018-01-09] MEDS ORDERED: ONDANSETRON PF 4 MG/2 ML VIAL. IV PRN (14:30)
[2018-01-09] MEDS ORDERED: MORPHINE SULFATE 2 MG/ML VIAL. IV PRN (14:30)
[2018-01-09] MEDS ORDERED: LIDO:MAALOX 1:1 20 ML SINGLE DOSE. PO PRN (15:15)
[2018-01-09 15:35] VITALS: BP 163/72
== END 2018-01-09 15:44 | disposition home or self-care (01) ==
LOC: ER 11:27
DX: R10.9 Unspecified abdominal pain (principal); K21.9 Gastro-esophageal reflux disease without esophagitis; I10 Essential (primary) hypertension; K58.9 Irritable bowel syndrome, unspecified; Z90.49 Acquired absence of other specified parts of digestive tract; Z90.710 Acquired absence of both cervix and uterus; Z88.0 Allergy status to penicillin; Z88.2 Allergy status to sulfonamides
CPT/HCPCS: 36415; 74177; 80053; 81001; 83690; 84484; 85007; 85025; 93005; 96374; 99285; J2270

== ENCOUNTER 2018-02-19 02:40 | Emergency (ER) | payer MEDICARE, BC ==
[~2018-02-19] VITALS: Ht 162.6 cm; Wt 59.0 kg
[~2018-02-19 02:40] MED LIST changes: -AMLO5TAB2 PO; +AMLO5TAB7 PO
--- NOTE | 2018-02-19 03:47 | PHYS DOC ---
Past Medical History Past Medical History: Cancer, GERD, Hypertension, Other Additional Past Medical Histor: IBS Past Surgical History: Cancer Surgery, Cholecystectomy, Hysterectomy Additional Past Surgical Histo: hernia, colon ca Alcohol Use: None Drug Use: None Adult General Chief Complaint Chief Complaint: ABDOMINAL PAIN HPI HPI Patient is a 87 year old female who presents with abdominal pain and midsternal pain. She states that the pain began yesterday evening. She notes that she ate fish (which she says is unusual for her) and that she ate more than usual. Since then, she has had diffuse abdominal pain that occasionally radiates to her back. She notes she has had episodes like this in the past and they have been "gas-related". She states her pain is more of an uncomfortable sensation and currently rates it as a 5-6/10. She also endorses accompanying nausea. She denies vomiting, diarrhea, constipation, or fevers. She notes she has a hernia located somewhere around her umbilicus. Denies fever /chills. Denies trauma. Review of Systems Review of Systems Constitutional: Denies fever or chills Eyes: Denies change in visual acuity, redness, or eye pain HENT: Denies nasal congestion or sore throat Respiratory: Denies cough or shortness of breath Cardiovascular: Notes midsternal pain; Denies heart palpitations GI: Notes abdominal pain and nausea; Denies vomiting, bloody stools, diarrhea, or constipation : Denies dysuria or hematuria Musculoskeletal: Denies back pain or joint pain Integument: Denies rash or skin lesions Neurologic: Denies headache, focal weakness or sensory changes Complete systems were reviewed and found to be within normal limits, except as documented in this note Family History Family History Noncontributory Current Medications Current Medications Current Medications Medications (Trade) Dose Ordered Sig/Wilmer Start Time Stop Time Status Last Admin Dose Admin Famotidine (Pepcid Vial) 20 mg 1X ONCE 02/19/18 04:00 02/19/18 04:01 DC Multi-Ingredient Mouthwash/Gargle (Gi Cocktail) 20 ml STK-MED ONCE 02/19/18 04:34 02/19/18 04:35 DC Ondansetron HCl (Zofran) 4 mg 1X ONCE 02/19/18 04:00 02/19/18 04:01 DC Sodium Chloride 1,000 ml @ 1,000 mls/hr 1X ONCE 02/19/18 04:00 02/19/18 04:59 Docusate, simethicone, Zofran, butalbutol, amlodipine, metoprolol, amitryptyline , clonazepam, esomeprazole Allergies Allergies Allergies Coded Allergies Type Severity Reaction Last Updated Verified Penicillins Allergy Intermediate 07/11/16 Yes Sulfa (Sulfonamide Antibiotics) Allergy Intermediate 07/11/16 Yes Physical Exam Physical Exam Constitutional: Well developed, well nourished, no acute distress, non-toxic appearance. [] HENT: Normocephalic, atraumatic, bilateral external ears normal, oropharynx moist, no oral exudates, nose normal. [] Eyes: PERRL, EOMI, conjunctiva normal, no discharge. [] Neck: Normal range of motion, no tenderness, supple, no meningeal signs[] Cardiovascular: Heart rate regular rhythm, no murmur [] Lungs & Thorax: Bilateral breath sounds clear to auscultation [] Abdomen: Soft, Bilateral upper abdominal quadrants tender to palpation, no distention Skin: Warm, dry, no erythema, no rash. [] Back: No tenderness, no CVA tenderness. [] Extremities: No tenderness, ROM intact, no edema. [] Neurologic: Alert and oriented X 3, normal motor function, normal sensory function, no focal deficits noted. [] Psychologic: Affect normal, judgement normal, mood normal. [] Current Patient Data Vital Signs Vital Signs Date Time Temp Pulse Resp B/P (MAP) Pulse Ox O2 Delivery O2 Flow Rate FiO2 02/19/18 03:09 97.9 61 20 129/59 (82) 99 Room Air 97.9 EKG EKG @ 4:04, normal sinus rhythm at 59 bpm, few premature atrial complexes seen, no ST elevations or reciprocal changes Interpretation Time: @ 4:07 Radiology/Procedures Radiology/Procedures [] Course & Med Decision Making Course & Med Decision Making Patient is an 87 year old female who presents with abdominal pain and midsternal pain. Pertinent labs and imaging studies were ordered. EKG @ 4:04 showed normal sinus rhythm at 59 bpm with few premature atrial complexes seen and no ST elevations or reciprocal changes. Patient refused placement of IV for obtaining labs and administering medication. She stated that she only wanted medications for her symptoms. Patient was given a GI cocktail for her symptoms. Patient was explained that she would be leaving against medical advice and the risks, including permanent disability and , were discussed, if she were to leave without further workup. Patient and family expressed understanding and agreement of all risks involved and elected to leave against medical advice without any further workup. Advised to return for any further concerns or worsening of condition. Dragon Disclaimer Dragon Disclaimer This electronic medical record was generated, in whole or in part, using a voice recognition dictation system. Departure Departure Impression: Primary Impression: Abdominal pain Additional Impression: Left against medical advice Disposition: 07 AGAINST MEDICAL ADVICE Condition: GUARDED Referrals: SCOTTY AUSTIN (PCP) SHALONDA BAILEY MD Patient Instructions: Discharge Against Medical Advice Problem Qualifiers Primary Impression: Abdominal pain Abdominal location: epigastric Qualified Codes: R10.13 - Epigastric pain HECTOR HAMPTON DO Feb 19, 2018 03:47
[2018-02-19] MEDS ORDERED: ONDANSETRON PF 4 MG/2 ML VIAL. IV ONE (04:00)
[2018-02-19] MEDS ORDERED: FAMOTIDINE 20 MG/2 ML VIAL IVP ONE (04:00)
[2018-02-19] MEDS ORDERED: IV NORMAL SALINE 1000ML BAG 1,000 ML IV ONE (04:00)
[2018-02-19] MEDS ORDERED: LIDO:MAALOX 1:1 20 ML SINGLE DOSE. ONE (04:34)
[2018-02-19 04:45] VITALS: BP 138/65
[2018-02-19] MEDS ORDERED: LIDO:MAALOX 1:1 20 ML SINGLE DOSE. PO ONE (05:00)
--- NOTE | 2018-02-19 05:32 | EKG ---
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
== END 2018-02-19 04:45 | disposition left against medical advice (07) ==
LOC: ER 02:40
DX: R10.13 Epigastric pain (principal); R07.2 Precordial pain; R11.0 Nausea; K21.9 Gastro-esophageal reflux disease without esophagitis; K58.9 Irritable bowel syndrome, unspecified; I10 Essential (primary) hypertension; Z90.710 Acquired absence of both cervix and uterus; Z90.49 Acquired absence of other specified parts of digestive tract; Z98.890 Other specified postprocedural states; Z85.038 Personal history of other malignant neoplasm of large intestine; Z88.0 Allergy status to penicillin; Z88.2 Allergy status to sulfonamides
CPT/HCPCS: 93005; 99284-25

== ENCOUNTER 2018-03-12 07:18 | Emergency (ER) | payer MEDICARE, BC ==
[~2018-03-12] VITALS: Ht 165.1 cm; Wt 59.9 kg
[2018-03-12] MEDS ORDERED: ACETAMINOPHEN 500 MG TABLET PO ONE (07:45)
--- NOTE | 2018-03-12 08:18 | RAD ---
CT of the head without contrast, 03/12/2018: HISTORY: Headache Comparison is made to a study from 12/25/2017. There is mild cerebral and cerebellar atrophy. The ventricles are within normal limits in size. There is no shift of the midline structures. There is no evidence of acute intracranial hemorrhage or mass effect. IMPRESSION: No acute intracranial abnormality is detected. PQRS Compliance Statement: One or more of the following individualized dose reduction techniques were utilized for this examination: 1. Automated exposure control 2. Adjustment of the mA and/or kV according to patient size 3. Use of iterative reconstruction technique Electronically signed by: Thad Henry MD (03/12/2018 8:15 AM) [facility]
[2018-03-12 09:00] VITALS: BP 127/82
--- NOTE | 2018-03-12 09:26 | PHYS DOC ---
Past Medical History Past Medical History: Cancer, GERD, Hypertension, Other Additional Past Medical Histor: IBS Past Surgical History: Cancer Surgery, Cholecystectomy, Hysterectomy Additional Past Surgical Histo: hernia, colon ca Alcohol Use: None Drug Use: None Adult General Chief Complaint Chief Complaint: HEADACHE HPI HPI Patient is a 87 year old female presented to ER today for evaluation of headache. Patient has history of migraine headache, she had been dealing with this headache for about a year, she had been evaluated by neurologist, had an MRI of her brain 4 months ago and it was normal. He woke up this morning with a headache again, however she feels more intense and different. She came in for evaluation. Patient denies any fever, no nausea vomiting. Patient denies any slurred speech, no focal weakness or numbness anywhere. Review of Systems Review of Systems Constitutional: Denies fever or chills [] Eyes: Denies change in visual acuity, redness, or eye pain [] HENT: Denies nasal congestion or sore throat [] Respiratory: Denies cough or shortness of breath [] Cardiovascular: No additional information not addressed in HPI [] GI: Denies abdominal pain, nausea, vomiting, bloody stools or diarrhea [] : Denies dysuria or hematuria [] Musculoskeletal: Denies back pain or joint pain [] Integument: Denies rash or skin lesions [] Neurologic: positive for headache Endocrine: Denies polyuria or polydipsia [] All other systems were reviewed and found to be within normal limits, except as documented in this note. Current Medications Current Medications Current Medications Medications (Trade) Dose Ordered Sig/Wilmer Start Time Stop Time Status Last Admin Dose Admin Acetaminophen (Tylenol) 1,000 mg 1X ONCE 03/12/18 07:45 03/12/18 07:46 DC 03/12/18 07:49 1,000 MG Allergies Allergies Allergies Coded Allergies Type Severity Reaction Last Updated Verified Penicillins Allergy Intermediate 07/11/16 Yes Sulfa (Sulfonamide Antibiotics) Allergy Intermediate 07/11/16 Yes Physical Exam Physical Exam Constitutional: Well developed, well nourished, no acute distress, non-toxic appearance. [] HENT: Normocephalic, atraumatic, bilateral external ears normal, oropharynx moist, no oral exudates, nose normal. [] Eyes: PERRLA, EOMI, conjunctiva normal, no discharge. [] Neck: Normal range of motion, no tenderness, supple, no stridor. [] Cardiovascular:Heart rate regular rhythm, no murmur [] Lungs & Thorax: Bilateral breath sounds clear to auscultation [] Abdomen: Bowel sounds normal, soft, no tenderness, no masses, no pulsatile masses. [] Skin: Warm, dry, no erythema, no rash. [] Back: No tenderness, no CVA tenderness. [] Extremities: No tenderness, no cyanosis, no clubbing, ROM intact, no edema. [] Neurologic: Alert and oriented X 3, normal motor function, normal sensory function, no focal deficits noted. [] Psychologic: Affect normal, judgement normal, mood normal. [] Current Patient Data Vital Signs Vital Signs Date Time Temp Pulse Resp B/P (MAP) Pulse Ox O2 Delivery O2 Flow Rate FiO2 03/12/18 09:00 62 16 99 03/12/18 07:30 98.4 169/72 (104) Room Air 98.4 EKG EKG [] Radiology/Procedures Radiology/Procedures [[facility] [address] [place] [address] IMAGING REPORT Signed PATIENT: LILLIAM GROSSMAN ACCOUNT: [id number] : 1930 LOCATION: ER AGE: 87 SEX: F EXAM STATUS: PRE ER ORD. PHYSICIAN: MONET ABEBE DO REASON: headache PROCEDURE: CT HEAD WO CONTRAST CT of the head without contrast, 03/12/2018: HISTORY: Headache Comparison is made to a study from 12/25/2017. There is mild cerebral and cerebellar atrophy. The ventricles are within normal limits in size. There is no shift of the midline structures. There is no evidence of acute intracranial hemorrhage or mass effect. IMPRESSION: No acute intracranial abnormality is detected. RS Compliance Statement: One or more of the following individualized dose reduction techniques were utilized for this examination: 1. Automated exposure control 2. Adjustment of the mA and/or kV according to patient size 3. Use of iterative reconstruction technique Electronically signed by: Thad Henry MD (03/12/2018 8:15 AM) [facility] DICTATED and SIGNED BY: THAD HENRY MD DATE: 03/12/18812 Course & Med Decision Making Course & Med Decision Making Pertinent Labs and Imaging studies reviewed. (See chart for details) She was given 1 g of Tylenol by mouth, she felt much better. CT scan of her head was normal. Patient will be discharged home. Dragon Disclaimer Dragon Disclaimer This electronic medical record was generated, in whole or in part, using a voice recognition dictation system. Departure Departure Impression: Primary Impression: Headache Disposition: 01 HOME, SELF-CARE Condition: IMPROVED Referrals: SCOTTY AUSTIN (PCP) Patient Instructions: General Headache Without Cause MONET ABEBE DO Mar 12, 2018 09:26
== END 2018-03-12 09:41 | disposition home or self-care (01) ==
LOC: ER 07:18
DX: R51 Headache (principal); G43.909 Migraine, unspecified, not intractable, without status migrainosus; K21.9 Gastro-esophageal reflux disease without esophagitis; I10 Essential (primary) hypertension; K58.9 Irritable bowel syndrome, unspecified; Z88.0 Allergy status to penicillin; Z88.2 Allergy status to sulfonamides
CPT/HCPCS: 70450; 99284-25

== ENCOUNTER 2018-05-05 04:21 | Emergency (ER) | payer MEDICARE, BC ==
[~2018-05-05] VITALS: Ht 165.1 cm; Wt 59.9 kg
[~2018-05-05 04:21] MED LIST changes: +CLON1TAB11 PO; -CLON1TAB4 PO
[2018-05-05 05:04] LABS: BASO # 0.1 x10^3/uL (0.0-0.2); BASO % 0 % (0-3); EOS % 0 % (0-3); HEMATOCRIT 32.8 % (36.0-47.0); HEMOGLOBIN 10.4 g/dL (12.0-15.5); LYMPH # 60.5 x10^3/uL (1.0-4.8); LYMPH % 94 % (24-48); MEAN CORPUSCULAR HEMOGLOBIN 31 pg (25-35); MEAN CORPUSCULAR HGB CONC 32 g/dL (31-37); MEAN CORPUSCULAR VOLUME 98 fL (79-100); MONO # 1.2 x10^3/uL (0.0-1.1); MONO % 2 % (0-9); NEUT # 2.7 x10^3uL (1.8-7.7); NEUT % 4 % (31-73); PLATELET COUNT 127 x10^3/uL (140-400); RED BLOOD COUNT 3.36 x10^6/uL (3.50-5.40)
[2018-05-05 05:08] LABS: WHITE BLOOD COUNT 64.5 x10^3/uL (4.0-11.0)
[2018-05-05 05:09] LABS: PROTHROMBIN TIME PATIENT 14.1 SEC (11.7-14.0)
[2018-05-05 05:21] LABS: ALBUMIN 3.6 g/dL (3.4-5.0); ALBUMIN/GLOBULIN RATIO 1.1 (1.0-1.7); CALCIUM 9.5 mg/dL (8.5-10.1); CREATININE 0.9 mg/dL (0.6-1.0); GFR 71.3; TOTAL BILIRUBIN 1.1 mg/dL (0.2-1.0); TOTAL PROTEIN 6.9 g/dL (6.4-8.2)
[2018-05-05] MEDS: IV NORMAL SALINE 1000ML BAG 1,000 ML IV SCH (05:22)
--- NOTE | 2018-05-05 05:40 | PHYS DOC ---
Past Medical History Past Medical History: Cancer (Leukemia), GERD, Hypertension, Other Additional Past Medical Histor: IBS Past Surgical History: Cancer Surgery, Cholecystectomy, Hysterectomy Additional Past Surgical Histo: hernia, colon ca Alcohol Use: None Drug Use: None Adult General Chief Complaint Chief Complaint: MULTIPLE COMPLAINTS [facility] HPI Patient is an 87-year-old female who presents with complaint of generalized abdominal pain that has been intermittent in nature and last night pain was a 10 out of 10. She states that at times the pain radiates up into her chest. She reports that she has been nauseated but has not vomited. She denies any fever. Currently she states the pain is improved. She denies any radiation of pain into her back. She states that she is not aware of any alleviating factors. She states that pain is worsened with food. Review of Systems Review of Systems Constitutional: Denies fever or chills [] Respiratory: Denies cough or shortness of breath [] Cardiovascular: No additional information not addressed in HPI [] GI: Complains of abdominal pain with nausea. No vomiting. [] Integument: Denies rash or skin lesions [] Neurologic: Denies headache, focal weakness or sensory changes [] All other systems were reviewed and found to be within normal limits, except as documented in this note. Current Medications Current Medications Current Medications Medications (Trade) Dose Ordered Sig/Wilmer Start Time Stop Time Status Last Admin Dose Admin Cephalexin HCl (Keflex) 500 mg 1X ONCE 05/05/18 09:00 05/05/18 09:10 DC 05/05/18 09:10 500 MG Info (CONTRAST GIVEN -- Rx MONITORING) 1 each PRN DAILY PRN 05/05/18 06:00 05/05/18 09:18 DC Iohexol (Omnipaque 300 Mg/ml) 75 ml 1X ONCE 05/05/18 06:30 05/05/18 06:31 DC 05/05/18 06:30 75 ML Sodium Chloride 1,000 ml @ 100 mls/hr Q10H 05/05/18 05:00 05/05/18 09:18 DC 05/05/18 05:22 100 MLS/HR Allergies Allergies Allergies Coded Allergies Type Severity Reaction Last Updated Verified Penicillins Allergy Intermediate 07/11/16 Yes Sulfa (Sulfonamide Antibiotics) Allergy Intermediate 07/11/16 Yes Physical Exam Physical Exam Constitutional: Well developed, well nourished, no acute distress, non-toxic appearance. [] HENT: Normocephalic, atraumatic, bilateral external ears normal, oropharynx moist, no oral exudates, nose normal. [] Eyes: PERRLA, EOMI, conjunctiva normal, no discharge. [] Neck: Normal range of motion, no tenderness, supple, no stridor. [] Cardiovascular: Regular rate and rhythm[] Lungs & Thorax: Bilateral breath sounds clear to auscultation [] Abdomen: Bowel sounds normal, soft, with diffuse abdominal tenderness. [] Skin: Warm, dry, no erythema, no rash. [] Extremities: No tenderness, no cyanosis, no clubbing, ROM intact, no edema. [] Neurologic: Alert and oriented X 3, normal motor function, normal sensory function, no focal deficits noted. [] HAMPTON Physical exam: Constitutional: Well developed, well nourished, no acute distress, non-toxic appearance. [] HENT: oropharynx moist, Abdomen: Soft, diffuse tenderness noted, no guarding or rebound Skin: Warm, dry Neurologic: Alert and oriented X 3, no focal deficits noted. [] Current Patient Data Vital Signs Vital Signs Date Time Temp Pulse Resp B/P (MAP) Pulse Ox O2 Delivery O2 Flow Rate FiO2 05/05/18 09:01 54 146/67 (93) 99 Room Air 05/05/18 08:31 18 05/05/18 04:28 98.2 98.2 Lab Values Laboratory Tests Test 05/05/18 04:35 05/05/18 06:00 White Blood Count 64.5 x10^3/uL (4.0-11.0) *H Red Blood Count 3.36 x10^6/uL (3.50-5.40) L Hemoglobin 10.4 g/dL (12.0-15.5) L Hematocrit 32.8 % (36.0-47.0) L Mean Corpuscular Volume 98 fL (79-100) Mean Corpuscular Hemoglobin 31 pg (25-35) Mean Corpuscular Hemoglobin Concent 32 g/dL (31-37) Red Cell Distribution Width 14.0 % (11.5-14.5) Platelet Count 127 x10^3/uL (140-400) L Neutrophils (%) (Auto) 4 % (31-73) L Lymphocytes (%) (Auto) 94 % (24-48) H Monocytes (%) (Auto) 2 % (0-9) Eosinophils (%) (Auto) 0 % (0-3) Basophils (%) (Auto) 0 % (0-3) Neutrophils # (Auto) 2.7 x10^3uL (1.8-7.7) Lymphocytes # (Auto) 60.5 x10^3/uL (1.0-4.8) H Monocytes # (Auto) 1.2 x10^3/uL (0.0-1.1) H Eosinophils # (Auto) 0.0 x10^3/uL (0.0-0.7) Basophils # (Auto) 0.1 x10^3/uL (0.0-0.2) Lymphocytes % 98 % (24-48) H Monocytes % 2 % (0-10) Smudge Cells Present Platelet Estimate Decreased (ADEQUATE) Prothrombin Time 14.1 SEC (11.7-14.0) H Prothrombin Time INR 1.1 (0.8-1.1) Sodium Level 143 mmol/L (136-145) Potassium Level 4.0 mmol/L (3.5-5.1) Chloride Level 106 mmol/L (98-107) Carbon Dioxide Level 30 mmol/L (21-32) Anion Gap 7 (6-14) Blood Urea Nitrogen 12 mg/dL (7-20) Creatinine 0.9 mg/dL (0.6-1.0) Estimated GFR (Cockcroft-Gault) 71.3 BUN/Creatinine Ratio 13 (6-20) Glucose Level 97 mg/dL (70-99) Calcium Level 9.5 mg/dL (8.5-10.1) Total Bilirubin 1.1 mg/dL (0.2-1.0) H Aspartate Amino Transferase (AST) 19 U/L (15-37) Alanine Aminotransferase (ALT) 21 U/L (14-59) Alkaline Phosphatase 101 U/L (46-116) Total Protein 6.9 g/dL (6.4-8.2) Albumin 3.6 g/dL (3.4-5.0) Albumin/Globulin Ratio 1.1 (1.0-1.7) Lipase 106 U/L (73-393) Urine Collection Type Void Urine Color Yellow Urine Clarity Clear Urine pH 7.0 Urine Specific [place] 1.010 Urine Protein Negative mg/dL (NEG-TRACE) Urine Glucose (UA) Negative mg/dL (NEG) Urine Ketones (Stick) Negative mg/dL (NEG) Urine Blood Trace (NEG) Urine Nitrite Negative (NEG) Urine Bilirubin Negative (NEG) Urine Urobilinogen Dipstick 1.0 mg/dL (0.2 mg/dL) Urine Leukocyte Esterase Small (NEG) Urine RBC 1-2 /HPF (0-2) Urine WBC 5-10 /HPF (0-4) Urine Squamous Epithelial Cells Mod /LPF Urine Bacteria Few /HPF (0-FEW) Laboratory Tests 05/05/18 04:35 Laboratory Tests 05/05/18 04:35 EKG EKG [] Radiology/Procedures Radiology/Procedures PROCEDURE: CT ABD PELV W/ IV CONTRST ONLY Examination: CT ABD PELV W/ IV CONTRST ONLY History: ABDOMEN PAIN, IV OMNI 300 75 MLS, PREVIOUS Comparison/Correlation: 01/09/2018 CT abdomen and pelvis with contrast Findings: Axial images of the abdomen and pelvis were obtained following 75 cc Omnipaque 300 IV. Sagittal and coronal reformatted images were provided. Small bulla is noted involving the right lung field laterally. Right lower lobe partially calcified nodule is present. Liver, spleen, pancreas are normal. Kidneys are unremarkable. Bilateral extrarenal pelvis noted greater on the right. Absence of the gallbladder noted. Gastrohepatic ligament lymphadenopathy again seen. Enlarged lymph nodes are present. Slight enlargement of one of the lymph nodes at this level compared to previous CT exam is by less than 0.1 cm. Large lymph node along the posterior, superior aspect of the left renal vein is present measuring 2.5 cm in maximum diameter and this represents increased by 0.7 cm in the interval. Additional retroperitoneal lymph nodes are present about the aorta and inferior vena cava. These are increased in size compared to the previous exam. No ascites or pelvic free fluid. Moderate quantity of stool in the colon is present. No bowel obstruction. Right low pelvic sidewall lymphadenopathy is notable increase in the interval. Lymph node measuring 1.8 cm x 3.4 cm at the right low pelvic sidewall anteriorly is present and this represents increase in size by approximately 1 cm in each dimension of the axial plane. Bilateral inguinal lymphadenopathy is again identified and increased on the right in the interval. Left lower quadrant ostomy is present. Hysterectomy noted. Mild compression deformity of the L2 superior endplate is noted. Impression: Interval increased lymphadenopathy compared to previous exam. Increased size of lymph nodes is evident. Electronically signed by: Ramon Blackwell MD (05/05/2018 7:04 AM) [facility] Course & Med Decision Making Course & Med Decision Making Pertinent Labs and Imaging studies reviewed. (See chart for details) Patient moved to room upon arrival was evaluated by ER medical staff after which an IV was established and blood work drawn. Blood work has returned with markedly elevated white blood cell count. Creatinine is normal so a CT with contrast will be obtained. At this time CT results are pending and patient is being signed out to Dr. Hampton at 6:00 AM. BERTA 0600- Sign out received from Dr. Munoz for patient with diffuse abdominal pain. Labs reviewed. WBC elevation appears stable in comparison to prior per [facility] review (WBC 60.8 on 01/09/18). hx of leukemia. CT abd/ pelvis pending at time of sign out. Patient seen and evaluated by myself. CT abd/pelvis with some constipation and nonspecific mild increased lymphadenopathy. A copy of CT imaging provided to patient to give to PCP/ Household Assistant for further evaluation. UA also appears to have signs of infection vs contamination. Patient reports increased urinary frequency. Empiric antibiotics therefore provided. Patient reports interval improvement of symptoms. Patient stable for discharge home with outpatient follow-up with PCP/ Household Assistant. Discussed findings and plan with patient and family, who acknowledge understanding and agreement. Dragon Disclaimer Dragon Disclaimer This electronic medical record was generated, in whole or in part, using a voice recognition dictation system. Departure Departure Impression: Primary Impression: Abdominal pain Additional Impressions: Constipation UTI (urinary tract infection) Disposition: 01 HOME, SELF-CARE Condition: STABLE Referrals: SCOTTY AUSTIN (PCP) Patient Instructions: Abdominal Pain (Nonspecific), Constipation, Adult, Easy- to-Read, Urinary Tract Infection Scripts Cephalexin (KEFLEX) 500 Mg Capsule 500 MG PO BID for 7 Days, #14 CAP Prov: HECTOR HAMPTON DO 05/05/18 Magnesium Citrate (MAGNESIUM CITRATE) 296 Ml Solution 296 ML PO ONCE PRN for CONSTIPATION, #296 ML Prov: HECTOR HAMPTON DO 05/05/18 Sennosides/Docusate Sodium (Colace 2-in-1 Tablet) 1 Each Tablet 1 EACH PO QHS PRN for CONSTIPATION, #14 TAB Prov: HECTOR HAMPTON DO 05/05/18 Problem Qualifiers Primary Impression: Abdominal pain Abdominal location: generalized Qualified Codes: R10.84 - Generalized abdominal pain Additional Impressions: Constipation Constipation type: unspecified constipation type Qualified Codes: K59.00 - Constipation, unspecified UTI (urinary tract infection) Urinary tract infection type: acute cystitis Hematuria presence: without hematuria Qualified Codes: N30.00 - Acute cystitis without hematuria CARLO MUNOZ Jr. DO May 05, 2018 05:40 HECTOR HAMPTON DO May 05, 2018 08:17
[2018-05-05] MEDS ORDERED: CONTRAST GIVEN. MC PRN (06:00)
[2018-05-05 06:13] LABS: BILIRUBIN,URINE NEGATIVE (NEG); CLARITY,URINE CLEAR; COLOR,URINE YELLOW; NITRITE,URINE NEGATIVE (NEG); PROTEIN,URINE NEGATIVE (NEG-TRACE)
[2018-05-05 06:25] LABS: BACTERIA,URINE FEW /HPF (0-FEW); SQUAMOUS EPITHELIAL CELL,UR MOD /LPF
[2018-05-05] MEDS: IOHEXOL 300 MG/ML 100ML VIAL. IV ONE (06:30)
--- NOTE | 2018-05-05 07:07 | RAD ---
Examination: CT ABD PELV W/ IV CONTRST ONLY History: ABDOMEN PAIN, IV OMNI 300 75 MLS, PREVIOUS Comparison/Correlation: 01/09/2018 CT abdomen and pelvis with contrast Findings: Axial images of the abdomen and pelvis were obtained following 75 cc Omnipaque 300 IV. Sagittal and coronal reformatted images were provided. Small bulla is noted involving the right lung field laterally. Right lower lobe partially calcified nodule is present. Liver, spleen, pancreas are normal. Kidneys are unremarkable. Bilateral extrarenal pelvis noted greater on the right. Absence of the gallbladder noted. Gastrohepatic ligament lymphadenopathy again seen. Enlarged lymph nodes are present. Slight enlargement of one of the lymph nodes at this level compared to previous CT exam is by less than 0.1 cm. Large lymph node along the posterior, superior aspect of the left renal vein is present measuring 2.5 cm in maximum diameter and this represents increased by 0.7 cm in the interval. Additional retroperitoneal lymph nodes are present about the aorta and inferior vena cava. These are increased in size compared to the previous exam. No ascites or pelvic free fluid. Moderate quantity of stool in the colon is present. No bowel obstruction. Right low pelvic sidewall lymphadenopathy is notable increase in the interval. Lymph node measuring 1.8 cm x 3.4 cm at the right low pelvic sidewall anteriorly is present and this represents increase in size by approximately 1 cm in each dimension of the axial plane. Bilateral inguinal lymphadenopathy is again identified and increased on the right in the interval. Left lower quadrant ostomy is present. Hysterectomy noted. Mild compression deformity of the L2 superior endplate is noted. Impression: Interval increased lymphadenopathy compared to previous exam. Increased size of lymph nodes is evident. Electronically signed by: Ramon Blackwell MD (05/05/2018 7:04 AM) [facility]
[2018-05-05 07:15] LABS: % LYMPHS 98 % (24-48); % MONOS 2 % (0-10); PLT ESTIMATE DECREASED (ADEQUATE); SMUDGE CELLS PRESENT
[2018-05-05] MEDS ORDERED: SENN-121 PO (08:53)
[2018-05-05] MEDS ORDERED: MAGN296S9 PO (08:53)
[2018-05-05] MEDS ORDERED: CEPH-264 PO (08:53)
[2018-05-05 09:01] VITALS: BP 146/67
[2018-05-05] MEDS: CEPHALEXIN 250 MG CAPSULE. PO ONE (09:10)
--- NOTE | 2018-05-05 12:51 | EKG ---
[facility] [address] [place] [address] Test Date: 2018-05-05 Test Time: 04:31:33 Pat Name: LILLIAM GROSSMAN Department: Room: Gender: F Tunnel Inspector: : [id number] Requested By: CARLO WATKINS Order Number: [id number] Reading MD: Measurements Intervals Carey Rate: 56 P: 53 WV: 172 QRS: 56 QRSD: 74 T: 36 QT: 400 QTc: 388 Interpretive Statements SINUS RHYTHM LEFT ATRIAL ABNORMALITY ABNORMAL ECG RI6.01 No previous ECG available for comparison
== END 2018-05-05 09:18 | disposition home or self-care (01) ==
LOC: ER 04:21
DX: N39.0 Urinary tract infection, site not specified (principal); K59.00 Constipation, unspecified; R07.89 Other chest pain; K21.9 Gastro-esophageal reflux disease without esophagitis; I10 Essential (primary) hypertension; K58.9 Irritable bowel syndrome, unspecified; Z98.890 Other specified postprocedural states; Z90.49 Acquired absence of other specified parts of digestive tract; Z90.710 Acquired absence of both cervix and uterus; Z85.038 Personal history of other malignant neoplasm of large intestine; Z88.0 Allergy status to penicillin; Z88.2 Allergy status to sulfonamides
CPT/HCPCS: 36415; 74177; 80053; 81001; 83690; 85007; 85025; 85610; 87086; 93005; 99284; J7030; Q9967

== ENCOUNTER 2018-06-27 12:05 | Emergency (ER) | payer MEDICARE, BC ==
[~2018-06-27] VITALS: Ht 165.1 cm; Wt 63.0 kg
[~2018-06-27 12:05] MED LIST changes: +AMLO5TAB10 PO; -AMLO5TAB7 PO; +CEPH-264 PO; +MAGN296S9 PO; +SENN-121 PO
[2018-06-27 13:12] LABS: BASO # 0.1 x10^3/uL (0.0-0.2); BASO % 0 % (0-3); EOS % 0 % (0-3); HEMATOCRIT 34.8 % (36.0-47.0); HEMOGLOBIN 10.8 g/dL (12.0-15.5); LYMPH # 24.9 x10^3/uL (1.0-4.8); LYMPH % 89 % (24-48); MEAN CORPUSCULAR HEMOGLOBIN 30 pg (25-35); MEAN CORPUSCULAR HGB CONC 31 g/dL (31-37); MEAN CORPUSCULAR VOLUME 98 fL (79-100); MONO # 0.5 x10^3/uL (0.0-1.1); MONO % 2 % (0-9); NEUT # 2.6 x10^3uL (1.8-7.7); NEUT % 9 % (31-73); PLATELET COUNT 128 x10^3/uL (140-400); RED BLOOD COUNT 3.56 x10^6/uL (3.50-5.40); RED CELL DISTRIBUTION WIDTH 13.8 % (11.5-14.5)
[2018-06-27 13:14] LABS: CREATININE 0.9 mg/dL (0.6-1.0); GFR 71.3; POTASSIUM 3.9 mmol/L (3.5-5.1)
--- NOTE | 2018-06-27 13:20 | RAD ---
EXAM: Frontal view of the chest, AP views of the abdomen in upright and supine positions. CLINICAL INDICATION: CONSTIPATION, POSSIBLE SBO COMPARISON: None. FINDINGS: The heart is not enlarged. Aorta is tortuous. Mediastinal and hilar contours are otherwise normal. No focal parenchymal airspace opacity. No pleural effusion or pneumothorax. No abnormal small or large bowel dilatation. No evidence for bowel obstruction. Moderate colonic stool content. Anastomotic suture line is seen in the left abdomen. No suspicious calcifications are seen. No free intraperitoneal gas. Hip joint degenerative changes are seen. IMPRESSION: 1. Lungs are clear. 2. No radiographic evidence for bowel obstruction 3. Moderate colonic stool content Electronically signed by: Kingston Santos MD (06/27/2018 1:15 PM) [facility]
[2018-06-27] MEDS ORDERED: IV NORMAL SALINE 1000ML BAG 1,000 ML IV ONE (13:45)
[2018-06-27 13:57] LABS: % LYMPHS 95 % (24-48); % SEGS 5 % (35-66)
[2018-06-27 13:58] LABS: PLT ESTIMATE DECREASED (ADEQUATE); SMUDGE CELLS PRESENT
[2018-06-27] MEDS ORDERED: IOHEXOL 300 MG/ML 100ML VIAL. IV ONE (14:00)
[2018-06-27] MEDS ORDERED: CONTRAST GIVEN. MC PRN (14:15)
--- NOTE | 2018-06-27 15:10 | RAD ---
EXAM: CT Abdomen and Pelvis with IV contrast CLINICAL HISTORY: abd pain. COMPARISON: 05/05/2018 TECHNIQUE: Helical CT of the abdomen and pelvis was performed following the administration of intravenous contrast. Axial, coronal and sagittal reformatted images were generated. PQRS compliance statement - One or more of the following individualized dose reduction techniques were utilized for this study: 1. Automated exposure control 2. Adjustment of the mA and/or kV according to patient size 3. Use of iterative reconstruction technique FINDINGS: Lower chest: Lung bases are clear. Heart is not enlarged. A left pericardiac lymph node measures 2.3 x 1 cm. This is marginally decreased in size when compared to prior exam from 05/05/2018. Abdomen and Pelvis: No focal liver lesion. Spleen is unremarkable. Accounting for postcholecystectomy change, no biliary ductal dilatation. Pancreas is unremarkable. Left adrenal nodule versus enlarged lymph node. The right adrenal gland is normal. Symmetric nephrograms. Subcentimeter hypodense right lower pole renal lesion too small to characterize. No hydronephrosis or hydroureter. Left lower quadrant ostomy is seen. A small periumbilical hernia contains a loop of likely colon, stable to prior examination. Anastomotic suture lines are seen in the left lower quadrant as well as the right pelvis. Although there is no abnormal bowel dilatation to suggest bowel obstruction, the small and large bowel are diffusely fluid-filled. Enlarged abdominal and pelvic lymph nodes are seen. For example a gastrohepatic lymph node measures 4.7 x 2.2 cm, previously 3.5 x 1.6 cm when measured in a similar fashion. No abdominal or pelvic ascites. The distended bladder is unremarkable. Bones: Multilevel degenerative changes of the spine are seen. Height loss of L2 vertebral body, stable. Bilateral hip joint degenerative changes are also seen. IMPRESSION: 1. No evidence for bowel obstruction although there is fluid-filled loops of small and large bowel. Left lower quadrant and pelvic anastomotic suture lines are seen. 2. Abdominal and pelvic lymphadenopathy, some of which have increased since prior. Electronically signed by: Kingston Santos MD (06/27/2018 3:05 PM) [facility]
[2018-06-27 15:30] VITALS: BP 153/74
--- NOTE | 2018-06-27 16:26 | PHYS DOC ---
Past Medical History Past Medical History: Cancer, GERD, Hypertension, Other Additional Past Medical Histor: IBS, CLL, HERNIA Past Surgical History: Cancer Surgery, Cholecystectomy, Hysterectomy Additional Past Surgical Histo: COLECTOMY W/ COLOSTOMY BAG Alcohol Use: None Drug Use: None Adult General Chief Complaint Chief Complaint: CONSTIPATION HPI HPI Patient is a 87 year old female with remote history of colon cancer and colonoscopy, colostomy and periostoma hernia who presents with abdominal pain around stoma site decreased stoma output over the past 24 hours. No nausea vomiting. Reports abdominal distention. No hard stools, bleeding in stoma site. Has had prior episodes of bowel pain with partial small bowel obstruction. No fever chills, sweats. No chest pain shortness of breath. No other acute symptoms or complaints. Patient had recent outpatient MRI of her abdomen performed at [facility] 4 days ago. Results are unavailable. Patient with history obtained from the patient's daughter.] Review of Systems Review of Systems Review symptoms as per history of present illness. All other review symptoms are negative. All other systems were reviewed and found to be within normal limits, except as documented in this note. Current Medications Current Medications Current Medications Medications (Trade) Dose Ordered Sig/Wilmer Start Time Stop Time Status Last Admin Dose Admin Info (CONTRAST GIVEN -- Rx MONITORING) 1 each PRN DAILY PRN 06/27/18 14:15 06/27/18 15:54 DC Iohexol (Omnipaque 300 Mg/ml) 100 ml 1X ONCE 06/27/18 14:00 06/27/18 14:06 DC Sodium Chloride 1,000 ml @ 1,000 mls/hr 1X ONCE 06/27/18 13:45 06/27/18 14:44 DC 06/27/18 13:45 1,000 MLS/HR Allergies Allergies Allergies Coded Allergies Type Severity Reaction Last Updated Verified Penicillins Allergy Intermediate 07/11/16 Yes Sulfa (Sulfonamide Antibiotics) Allergy Intermediate 07/11/16 Yes Physical Exam Physical Exam Constitutional: Well developed, well nourished, no acute distress, non-toxic appearance. [] HENT: Normocephalic, atraumatic, bilateral external ears normal, nose normal. [] Eyes: PERRLA, EOMI, conjunctiva normal, no discharge. [] Neck: Normal range of motion, no tenderness. [] Cardiovascular:Heart rate regular rhythm, no murmur [] Lungs & Thorax: Bilateral breath sounds clear to auscultation [] Abdomen: Bowel sounds normal, soft, distended with increased bowel sounds, peristomal hernia, moderate soft stool and flatus in ostomy bag. [] Skin: Warm, dry. [] Back: No tenderness. [] Extremities: No tenderness,no edema. [] Neurologic: Alert and oriented X 3, normal motor function, normal sensory function, no focal deficits noted. [] Psychologic: Affect normal, judgement normal, mood normal. [] Current Patient Data Vital Signs Vital Signs Date Time Temp Pulse Resp B/P (MAP) Pulse Ox O2 Delivery O2 Flow Rate FiO2 06/27/18 15:30 68 18 153/74 (100) 98 Room Air 06/27/18 12:31 97.8 97.8 Lab Values Laboratory Tests Test 06/27/18 12:56 White Blood Count 28.0 x10^3/uL (4.0-11.0) H Red Blood Count 3.56 x10^6/uL (3.50-5.40) Hemoglobin 10.8 g/dL (12.0-15.5) L Hematocrit 34.8 % (36.0-47.0) L Mean Corpuscular Volume 98 fL (79-100) Mean Corpuscular Hemoglobin 30 pg (25-35) Mean Corpuscular Hemoglobin Concent 31 g/dL (31-37) Red Cell Distribution Width 13.8 % (11.5-14.5) Platelet Count 128 x10^3/uL (140-400) L Neutrophils (%) (Auto) 9 % (31-73) L Lymphocytes (%) (Auto) 89 % (24-48) H Monocytes (%) (Auto) 2 % (0-9) Eosinophils (%) (Auto) 0 % (0-3) Basophils (%) (Auto) 0 % (0-3) Neutrophils # (Auto) 2.6 x10^3uL (1.8-7.7) Lymphocytes # (Auto) 24.9 x10^3/uL (1.0-4.8) H Monocytes # (Auto) 0.5 x10^3/uL (0.0-1.1) Eosinophils # (Auto) 0.0 x10^3/uL (0.0-0.7) Basophils # (Auto) 0.1 x10^3/uL (0.0-0.2) Segmented Neutrophils % 5 % (35-66) L Lymphocytes % 95 % (24-48) H Smudge Cells Present Platelet Estimate Decreased (ADEQUATE) Sodium Level 142 mmol/L (136-145) Potassium Level 3.9 mmol/L (3.5-5.1) Chloride Level 104 mmol/L (98-107) Carbon Dioxide Level 28 mmol/L (21-32) Anion Gap 10 (6-14) Blood Urea Nitrogen 16 mg/dL (7-20) Creatinine 0.9 mg/dL (0.6-1.0) Estimated GFR (Cockcroft-Gault) 71.3 Glucose Level 101 mg/dL (70-99) H Calcium Level 10.0 mg/dL (8.5-10.1) Laboratory Tests 06/27/18 12:56 Laboratory Tests 06/27/18 12:56 EKG EKG [] Radiology/Procedures Radiology/Procedures [CT abdomen pelvis: Large pelvic lymph nodes, distended fluid-filled loops of bowel without obstruction, peristomal hernia per radiology report.] Course & Med Decision Making Course & Med Decision Making Pertinent Labs and Imaging studies reviewed. (See chart for details) [Patient able to have significant output stoma in the emergency department with reduced abdominal distention. Patient feels much better. Will have follow-up with [facility] doctor for continued judgment. Return precautions reviewed.] Dragon Disclaimer Dragon Disclaimer This electronic medical record was generated, in whole or in part, using a voice recognition dictation system. Departure Departure Impression: Primary Impression: Parastomal hernia Additional Impression: Abdominal pain Disposition: 01 HOME, SELF-CARE Condition: GOOD Patient Instructions: Hernia, Abdominal Pain (Nonspecific) Additional Instructions: You were evaluated in the mergency department for abdominal pain decreased ostomy outpatient. Your symptoms are most consistent with parastomal hernia with intermittent constipation. Additionally, two pelvic masses were present on the CT. Please continue current care plan outlined by your [facility] physician and follow-up your doctor next week. Return to the ED if you develop new or worsening symptoms. Problem Qualifiers PEREZ PAULINO DO Jun 27, 2018 16:26
== END 2018-06-27 15:47 | disposition home or self-care (01) ==
LOC: ER 12:05
DX: K43.5 Parastomal hernia without obstruction or gangrene (principal); I10 Essential (primary) hypertension; K21.9 Gastro-esophageal reflux disease without esophagitis; K58.9 Irritable bowel syndrome, unspecified; Z90.49 Acquired absence of other specified parts of digestive tract; Z90.710 Acquired absence of both cervix and uterus; Z98.890 Other specified postprocedural states; Z85.038 Personal history of other malignant neoplasm of large intestine; Z93.3 Colostomy status; Z88.0 Allergy status to penicillin; Z88.2 Allergy status to sulfonamides
CPT/HCPCS: 36415; 74022; 74177; 80048; 85007; 85025; 99284; J7030; Q9967